=== PATIENT | male | born 1945 | race Caucasian/White ===

== ENCOUNTER 2017-05-31 14:13 | Emergency (ER) | payer MEDICARE, OTHER ==
[2017-05-31] MEDS ORDERED: MECLIZINE 25 MG TAB PO STA (14:53)
--- NOTE | 2017-05-31 15:02 | ED ---
General Adult HPI - General Chief complaint: Dizziness Stated complaint: Dizziness Time Seen by Provider: 05/31/17 14:15 Source: patient, RN notes reviewed Mode of arrival: EMS Limitations: no limitations - History of Present Illness Initial comments: This is a 71-year-old male presents emergency Department complaining of dizziness. Patient states he woke up in the middle of the night feeling dizzy patient states he went back to bed and seemed to have gotten better. 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 Patient states he did not injure himself he was already on his knees and hands when he couldn't get up. Patient states she was mildly nauseated but not vomiting. Patient states he has not had similar episodes in the past. Patient states the whole room seems like it spinning when this occurs. Patient did not notice if moving the head or shutting her eyes improved his symptoms. At this time the patient has no symptoms while sitting in bed - Related Data Home Medications Medication Instructions Recorded Confirmed Apixaban [Eliquis] 5 mg PO BID 11/01/14 05/31/17 Cholecalciferol [Vitamin D3] 2,000 unit PO DAILY 11/01/14 05/31/17 Colesevelam [Welchol] 3,750 mg PO AC-BRKFST 11/01/14 05/31/17 Gemfibrozil [Lopid] 600 mg PO AC-BID 11/01/14 05/31/17 Glimepiride [Amaryl] 4 mg PO AC-BID 11/01/14 05/31/17 Metoprolol Tartrate 25 mg PO BID 11/01/14 05/31/17 Multivitamin [Men's Multi-Vitamin] 1 tab PO DAILY 11/01/14 05/31/17 [place]-3 Acid Ethyl Esters [Lovaza] 1 gm PO QID 11/01/14 05/31/17 Quinapril HCl [Accupril] 5 mg PO DAILY 11/01/14 05/31/17 Ranolazine [Ranexa] 1,000 mg PO BID 11/01/14 05/31/17 metFORMIN HCL [Glucophage Xr] 500 mg PO DAILY 11/01/14 05/31/17 Calcium Carb/Vitamin D3/Vit K1 2 tab PO TID 05/31/17 05/31/17 [Citracal Soft Chew] Fluticasone Nasal [place] [Flonase 2 spr EA NOSTRIL DAILY 05/31/17 05/31/17 Nasal [place]] Pravastatin Sodium [Pravachol] 10 mg PO DAILY 05/31/17 05/31/17 Travoprost [Travatan Z 0.004%] 1 drop BOTH EYES HS 05/31/17 05/31/17 Previous Rx's Medication Instructions Recorded Meclizine [Antivert] 25 mg PO TID #20 tab 05/31/17 Allergies Allergy/AdvReac Type Severity Reaction Status Date / Time amoxicillin Allergy Unknown Verified 05/31/17 14:32 ampicillin Allergy Unknown Verified 05/31/17 14:32 cortisone Allergy Unknown Verified 05/31/17 14:32 erythromycin base Allergy Unknown Verified 05/31/17 14:32 Penicillins Allergy Unknown Verified 05/31/17 14:32 prednisone Allergy Unknown Verified 05/31/17 14:32 Review of Systems ROS Statement: Those systems with pertinent positive or pertinent negative responses have been documented in the HPI. ROS Other: All systems not noted in ROS Statement are negative. Past Medical History Past Medical History: Coronary Artery Disease (CAD), Chest Pain / Angina, Diabetes Mellitus, Hyperlipidemia, Hypertension, Myocardial Infarction ([place]) History of Any Multi-Drug Resistant Organisms: None Reported Past Surgical History: Coronary Bypass/CABG Past Psychological History: No Psychological Hx Reported Smoking Status: Former smoker Past Alcohol Use History: Occasional Past Drug Use History: None Reported General Exam - General Exam Comments Initial Comments: GENERAL: Patient is well-developed and well-nourished. Patient is nontoxic and well- hydrated and is in no acute distress. ENT: Neck is soft and supple. No significant lymphadenopathy is noted. Oropharynx is clear. Moist mucous membranes. Neck has full range of motion without eliciting any pain. EYES: The sclera were anicteric and conjunctiva were pink and moist. Extraocular movements were intact and pupils were equal round and reactive to light. Eyelids were unremarkable. PULMONARY: Unlabored respirations. Good breath sounds bilaterally. No audible rales rhonchi or wheezing was noted. CARDIOVASCULAR: There is a regular rate and rhythm without any murmurs gallops or rubs. ABDOMEN: Soft and nontender with normal bowel sounds. No palpable organomegaly was noted. There is no palpable pulsatile mass. SKIN: Skin is clear with no lesions or rashes and otherwise unremarkable. NEUROLOGIC: Patient is alert and oriented x3. Cranial nerves II through XII are grossly intact. Motor and sensory are also intact. Normal speech, volume and content. Symmetrical smile. Cerebellar exam grossly intact. MUSCULOSKELETAL: Normal extremities with adequate strength and full range of motion. No lower extremity swelling or edema. No calf tenderness. LYMPHATICS: No significant lymphadenopathy is noted PSYCHIATRIC: Normal psychiatric evaluation. Normal interpersonal interactions appears functionally intact in deals appropriately with others. No signs of depression. No signs of anxiety. Limitations: no limitations Course Vital Signs 05/31/17 05/31/17 14:16 15:10 Temperature 97.2 F L Pulse Rate 60 61 Respiratory 16 20 Rate Blood Pressure 150/70 131/74 O2 Sat by Pulse 98 99 Oximetry Medical Decision Making - Medical Decision Making EKG shows normal sinus rhythm at 60 bpm UT interval is 178 QRSs 164 QT interval is 456 QTC is 456 per patient's EKG shows a left bundle branch block. CT of the brain shows no acute abnormality. Chest x-ray shows no acute normalities. Patient got Antivert and then was ambulate patient had no problems ambulating. - Lab Data Result diagrams: 05/31/17 14:30 05/31/17 14:30 Lab Results 05/31/17 05/31/17 05/31/17 Range/Units 14:30 14:30 14:30 WBC 4.2 (3.8-10.6) k/uL RBC 4.33 (4.30-5.90) m/uL Hgb 13.0 (13.0-17.5) gm/dL Hct 38.9 L (39.0-53.0) % MCV 89.8 (80.0-100.0) fL MCH 30.1 (25.0-35.0) pg MCHC 33.5 (31.0-37.0) g/dL RDW 12.7 (11.5-15.5) % Plt Count 264 (150-450) k/uL Neutrophils % 52 % Lymphocytes % 36 % Monocytes % 8 % Eosinophils % 1 % Basophils % 1 % Neutrophils # 2.2 (1.3-7.7) k/uL Lymphocytes # 1.5 (1.0-4.8) k/uL Monocytes # 0.3 (0-1.0) k/uL Eosinophils # 0.1 (0-0.7) k/uL Basophils # 0.0 (0-0.2) k/uL PT (9.0-12.0) sec INR (<1.2) APTT (22.0-30.0) sec Sodium 141 (137-145) mmol/L Potassium 4.5 (3.5-5.1) mmol/L Chloride 105 (98-107) mmol/L Carbon Dioxide 22 (22-30) mmol/L Anion Gap 14 mmol/L BUN 17 (9-20) mg/dL Creatinine 0.80 (0.66-1.25) mg/dL Est GFR (MDRD) Af Amer >60 (>60 ml/min/1.73 sqM) Est GFR (MDRD) Non-Af >60 (>60 ml/min/1.73 sqM) Glucose 176 H (74-99) mg/dL Calcium 10.6 H (8.4-10.2) mg/dL Magnesium 1.9 (1.6-2.3) mg/dL Total Bilirubin 0.4 (0.2-1.3) mg/dL AST 17 (17-59) U/L ALT 24 (21-72) U/L Alkaline Phosphatase 38 (38-126) U/L Total Creatine Kinase 63 (55-170) U/L CK-MB (CK-2) 0.9 (0.0-2.4) ng/mL CK-MB (CK-2) Rel Index 1.4 Troponin I <0.012 (0.000-0.034) ng/mL Total Protein 7.2 (6.3-8.2) g/dL Albumin 4.6 (3.5-5.0) g/dL 05/31/17 Range/Units 14:30 WBC (3.8-10.6) k/uL RBC (4.30-5.90) m/uL Hgb (13.0-17.5) gm/dL Hct (39.0-53.0) % MCV (80.0-100.0) fL MCH (25.0-35.0) pg MCHC (31.0-37.0) g/dL RDW (11.5-15.5) % Plt Count (150-450) k/uL Neutrophils % % Lymphocytes % % Monocytes % % Eosinophils % % Basophils % % Neutrophils # (1.3-7.7) k/uL Lymphocytes # (1.0-4.8) k/uL Monocytes # (0-1.0) k/uL Eosinophils # (0-0.7) k/uL Basophils # (0-0.2) k/uL PT 10.1 (9.0-12.0) sec INR 1.0 (<1.2) APTT 23.7 (22.0-30.0) sec Sodium (137-145) mmol/L Potassium (3.5-5.1) mmol/L Chloride (98-107) mmol/L Carbon Dioxide (22-30) mmol/L Anion Gap mmol/L BUN (9-20) mg/dL Creatinine (0.66-1.25) mg/dL Est GFR (MDRD) Af Amer (>60 ml/min/1.73 sqM) Est GFR (MDRD) Non-Af (>60 ml/min/1.73 sqM) Glucose (74-99) mg/dL Calcium (8.4-10.2) mg/dL Magnesium (1.6-2.3) mg/dL Total Bilirubin (0.2-1.3) mg/dL AST (17-59) U/L ALT (21-72) U/L Alkaline Phosphatase (38-126) U/L Total Creatine Kinase (55-170) U/L CK-MB (CK-2) (0.0-2.4) ng/mL CK-MB (CK-2) Rel Index Troponin I (0.000-0.034) ng/mL Total Protein (6.3-8.2) g/dL Albumin (3.5-5.0) g/dL Disposition Clinical Impression: Vertigo Disposition: HOME SELF-CARE Condition: Good Instructions: Vertigo (ED) Prescriptions: Meclizine [Antivert] 25 mg PO TID #20 tab Referrals: Nolan Dawn MD [Primary Care Provider] - 1-2 days Time of Disposition: 16:40
[2017-05-31 15:08] LABS: Basophils % (A) 1 %; Eosinophils # (A) 0.1 k/uL (0-0.7); Eosinophils % (A) 1 %; HCT 38.9 % (39.0-53.0); Lymphocytes # (A) 1.5 k/uL (1.0-4.8); Lymphocytes % (A) 36 %; MCH 30.1 pg (25.0-35.0); MCHC 33.5 g/dL (31.0-37.0); MCV 89.8 fL (80.0-100.0); Mean Platelet Volume 6.2; Monocytes # (A) 0.3 k/uL (0-1.0); Monocytes % (A) 8 %; Neutrophils # (A) 2.2 k/uL (1.3-7.7); Neutrophils % (A) 52 %; Platelet Count 264 k/uL (150-450); RBC 4.33 m/uL (4.30-5.90); RDW 12.7 % (11.5-15.5); WBC 4.2 k/uL (3.8-10.6)
[2017-05-31 15:11] VITALS: PULSE 61
[2017-05-31 15:14] LABS: Partial Thromboplastin Time 23.7 sec (22.0-30.0); Prothrombin Time 10.1 sec (9.0-12.0)
--- NOTE | 2017-05-31 15:16 | XR ---
EXAMINATION TYPE: XR chest 2V DATE OF EXAM: 05/31/2017 COMPARISON: 2015 chest radiograph HISTORY: Dizziness and weakness TECHNIQUE: Frontal and lateral views of the chest are obtained. FINDINGS: There is no focal air space opacity, pleural effusion, or pneumothorax seen. The cardiac silhouette size is within normal limits. The osseous structures are intact. Intact midline sternoto my wires and post CABG changes the chest are noted. Remote healed left upper lateral rib fractures ar e seen. Calcified granuloma is noted within the right lung base. Cholecystectomy clips are present. M ild multilevel degenerative changes of the thoracic spine are seen. IMPRESSION: No acute cardiopulmonary process.
[2017-05-31 15:25] LABS: ALT 24 U/L (21-72); AST 17 U/L (17-59); Albumin 4.6 g/dL (3.5-5.0); Alkaline Phosphatase 38 U/L (38-126); Anion Gap 14 mmol/L; Blood Urea Nitrogen 17 mg/dL (9-20); Calcium 10.6 mg/dL (8.4-10.2); Carbon Dioxide 22 mmol/L (22-30); Chloride 105 mmol/L (98-107); Glucose 176 mg/dL (74-99); Magnesium 1.9 mg/dL (1.6-2.3); Potassium 4.5 mmol/L (3.5-5.1); Sodium 141 mmol/L (137-145); Total Bilirubin 0.4 mg/dL (0.2-1.3); Total Protein 7.2 g/dL (6.3-8.2)
[2017-05-31 15:30] LABS: Creatine Kinase 63 U/L (55-170)
--- NOTE | 2017-05-31 15:32 | CT ---
EXAMINATION TYPE: CT brain wo con DATE OF EXAM: 05/31/2017 COMPARISON: NONE HISTORY: 71-year-old male Dizziness, fall and unable to get up afterwards. TECHNIQUE: Examination was done in axial plane without intravenous contrast. Coronal and sagittal r econstructions performed. CT DLP: 1171 mGycm Automated exposure control for dose reduction was used. FINDINGS: There is no evidence of acute intracranial hemorrhage, acute ischemic changes, mass, mass-effect, or extra-axial fluid collection. There is no effacement of cerebral sulci or basal subarachnoid cister ns. There is no hydrocephalus. There is no midline shift. Hurst-white matter distinction is preserv ed. Moderate to large right posterior scalp hematoma. No underlying calvarial fracture. Paranasal sinuses and mastoid air cells are well pneumatized. Orbits and globes are intact. IMPRESSION: Moderate to large right posterior scalp hematoma. No underlying skull fracture or acute intracranial abnormality seen.
[2017-05-31 15:43] LABS: Creatine Kinase MB 0.9 ng/mL (0.0-2.4); Troponin I <0.012 ng/mL (0.000-0.034)
[2017-05-31 16:42] VITALS: BP 127/76; RESP 18; TEMP 98.3
== END 2017-05-31 16:55 | disposition home or self-care (01) ==
LOC: EC 14:13
DX: R42 Dizziness and giddiness (principal); R11.0 Nausea; I44.7 Left bundle-branch block, unspecified; E11.9 Type 2 diabetes mellitus without complications; E78.5 Hyperlipidemia, unspecified; I10 Essential (primary) hypertension; I25.2 Old myocardial infarction; I25.10 Atherosclerotic heart disease of native coronary artery without angina pectoris; Z87.891 Personal history of nicotine dependence; Z88.0 Allergy status to penicillin; Z88.1 Allergy status to other antibiotic agents; Z88.8 Allergy status to other drugs, medicaments and biological substances; Z79.01 Long term (current) use of anticoagulants; Z79.84 Long term (current) use of oral hypoglycemic drugs; Z79.51 Long term (current) use of inhaled steroids; Z79.899 Other long term (current) drug therapy
CPT/HCPCS: 36415; 70450; 71046; 80053; 82550; 82553; 83735; 84484; 85025; 85610; 85730; 93005; 99285

== ENCOUNTER 2021-09-08 03:50 | Emergency (ER) | payer MEDICARE ==
--- NOTE | 2021-09-08 04:06 | ED ---
Chest Pain HPI <Agustín Warner - Last Filed: 09/08/21 08:27> - General Source: EMS, RN notes reviewed, old records reviewed Mode of arrival: EMS Limitations: no limitations - History of Present Illness MD Complaint: chest pain -: hour(s) Onset: during rest Pain Location: left chest Pain Radiation: back Severity: moderate Severity scale (1-10): 4 Quality: tightness, heaviness Consistency: intermittent, now resolved Improves With: nothing, eating Context: recent illness (Exposure to positive coronavirus ) Anginal Symptoms: diaphoresis, dyspnea Other Symptoms: palpitations Treatments Prior to Arrival: none <Gurjit Tinajero - Last Filed: 09/08/21 21:44> - General Chief Complaint: Chest Pain Stated Complaint: Chest Pain Time Seen by Provider: 09/08/21 04:06 - History of Present Illness Initial Comments: 76-year-old male with history of CAD coming in for chest pain chest pain that began earlier today with some pressure on his chest but that is all abated. Patient has no shortness of breath. Patient does take knowledge that he was recently exposed to covert his is positive tested positive yesterday. Patient does admit some nausea some bodyaches but he denies any fever he did have chills and sweats earlier tonight. No travel history no known significant chest pain currently. No current shortness of breath. (Gurjit Tinajero) - Related Data Home Medications Medication Instructions Recorded Confirmed Apixaban [Eliquis] 5 mg PO BID 11/01/14 05/31/17 Cholecalciferol [Vitamin D3] 2,000 unit PO DAILY 11/01/14 05/31/17 Colesevelam [Welchol] 3,750 mg PO AC-BRKFST 11/01/14 05/31/17 Glimepiride [Amaryl] 4 mg PO AC-BID 11/01/14 05/31/17 Metoprolol Tartrate 25 mg PO BID 11/01/14 05/31/17 Multivitamin [Men's Multi-Vitamin] 1 tab PO DAILY 11/01/14 05/31/17 [place]-3 Acid Ethyl Esters [Lovaza] 1 gm PO QID 11/01/14 05/31/17 Quinapril HCl [Accupril] 5 mg PO DAILY 11/01/14 05/31/17 Ranolazine [Ranexa] 1,000 mg PO BID 11/01/14 05/31/17 gemfibroziL [Lopid] 600 mg PO AC-BID 11/01/14 05/31/17 metFORMIN HCL [Glucophage Xr] 500 mg PO DAILY 11/01/14 05/31/17 Calcium Carb/Vitamin D3/Vit K1 2 tab PO TID 05/31/17 05/31/17 [Citracal Soft Chew] Fluticasone Nasal [place] [Flonase 2 spr EA NOSTRIL DAILY 05/31/17 05/31/17 Nasal [place]] Pravastatin Sodium [Pravachol] 10 mg PO DAILY 05/31/17 05/31/17 Travoprost [Travatan Z 0.004%] 1 drop BOTH EYES HS 05/31/17 05/31/17 Previous Rx's Medication Instructions Recorded Meclizine [Antivert] 25 mg PO TID #20 tab 05/31/17 Allergies Allergy/AdvReac Type Severity Reaction Status Date / Time amoxicillin Allergy Unknown Verified 09/08/21 03:53 ampicillin Allergy Unknown Verified 09/08/21 03:53 cortisone Allergy Unknown Verified 09/08/21 03:53 erythromycin base Allergy Unknown Verified 09/08/21 03:53 Penicillins Allergy Unknown Verified 09/08/21 03:53 prednisone Allergy Unknown Verified 09/08/21 03:53 Review of Systems ROS Other: All systems not noted in ROS Statement are negative. <Agustín Warner - Last Filed: 09/08/21 08:27> ROS Other: All systems not noted in ROS Statement are negative. <Gurjit Tinajero - Last Filed: 09/08/21 21:44> ROS Statement: Those systems with pertinent positive or pertinent negative responses have been documented in the HPI. EKG Findings - EKG Comments: EKG Findings:: EKG is sinus rhythm 77 ER 154 QRS 164 QTc 450 <Gurjit Tinajero - Last Filed: 09/08/21 21:44> Past Medical History Past Medical History: Coronary Artery Disease (CAD), Chest Pain / Angina, Diabetes Mellitus, Hyperlipidemia, Hypertension, Myocardial Infarction ([place]) History of Any Multi-Drug Resistant Organisms: None Reported Past Surgical History: Coronary Bypass/CABG Past Psychological History: No Psychological Hx Reported Smoking Status: Never smoker Past Alcohol Use History: Occasional Past Drug Use History: None Reported <Gurjit Tinajero - Last Filed: 09/08/21 21:44> General Exam Limitations: no limitations General appearance: alert, in no apparent distress Head exam: Present: atraumatic, normocephalic, normal inspection Eye exam: Present: normal appearance, PERRL, EOMI. Absent: scleral icterus, conjunctival injection, periorbital swelling ENT exam: Present: normal exam, mucous membranes moist Neck exam: Present: normal inspection. Absent: tenderness, meningismus, lymphadenopathy Respiratory exam: Present: normal lung sounds bilaterally. Absent: respiratory distress, wheezes, rales, rhonchi, stridor Cardiovascular Exam: Present: regular rate, normal rhythm, normal heart sounds. Absent: systolic murmur, diastolic murmur, rubs, gallop, clicks GI/Abdominal exam: Present: soft, normal bowel sounds. Absent: distended, tenderness, guarding, rebound, rigid Extremities exam: Present: normal inspection, full ROM, normal capillary refill. Absent: tenderness, pedal edema, joint swelling, calf tenderness Back exam: Present: normal inspection Neurological exam: Present: alert, oriented X3, CN II-XII intact Psychiatric exam: Present: normal affect, normal mood Skin exam: Present: warm, dry, intact, normal color. Absent: rash <Gurjit Tinajero - Last Filed: 09/08/21 21:44> Course <Gurjit Tinajero - Last Filed: 09/08/21 21:44> Vital Signs 09/08/21 09/08/21 09/08/21 03:53 03:57 05:02 Temperature 98.7 F Pulse Rate 80 70 Respiratory 16 16 18 Rate Blood Pressure 148/84 142/87 O2 Sat by Pulse 96 98 Oximetry 09/08/21 09/08/21 06:02 08:32 Temperature 99.6 F Pulse Rate 72 74 Respiratory 18 18 Rate Blood Pressure 140/67 142/80 O2 Sat by Pulse 97 96 Oximetry - Reevaluation(s) Reevaluation #1: 09/08/21 Medical record is reviewed (Gurjit Tinajero) Reevaluation #2: 09/08/21 Patient is positive for coronavirus will get antibody treatment here in the emergency department (Gurjit Tinajero) Reevaluation #3: 09/08/21 Patient has a mild troponin leak, will check his second troponin after antibiotics, patient is chest pain-free (Gurjit Tinajero) Reevaluation #4: Studies Chest x-rays negative for acute disease (Gurjit Tinajero) Chest Pain MDM <Agustín Warner - Last Filed: 09/08/21 08:27> - MDM Patient is a 76-year-old male signed out to me pending results of second troponin. Patient presents with chest tightness, and his Covid positive. He received monoclonal antibodies was here in the department. We'll send out to me pending results of second troponin, as initially was indeterminate. Remainder the labs are relatively unremarkable. Initial troponin was 0.016. Second troponin is 0.014. EKG was evaluated by the prior physician, and upon my evaluation appears unchanged from prior EKGs. There are chronic changes. There is an old left bundle branch block. On reevaluation, patient's vital signs remained within normal limits and stable. Chest pain is not present. I discussed the findings with the patient. I believe it is safer to be discharged home at this time. Heart score is 3-4, with 2 indeterminate troponins, the second actually improving. Patient is asymptomatic at this time. I did discuss quarantine with him. He will obtain a pulse oximeter for home. He'll be discharged home at this time. Strict return precautions were discussed. Patient tolerated the monoclonal antibody therapy well. I instructed the patient to follow up with their PCP in the next 3 days. I explained that the patient should return to the emergency department if they experience any worsening symptoms. Strict return precautions were discussed with the patient. The patient expressed understanding of these instructions. I answered all questions that the patient had. The patient was discharged home in good condition with their prescriptions and follow up information. (Agustín Warner) Disposition Is patient prescribed a controlled substance at d/c from ED?: No Time of Disposition: 08:15 <Agustín Warner - Last Filed: 09/08/21 08:27> Is patient prescribed a controlled substance at d/c from ED?: No <Gurjit Tinajero - Last Filed: 09/08/21 21:44> Clinical Impression: Atypical chest pain, COVID-19, Coronavirus infection Disposition: HOME SELF-CARE Condition: Good Instructions (If sedation given, give patient instructions): Coronavirus Disease 2019 (COVID-19), COVID-19 and Chronic Health Conditions (ED) Referrals: Nolan Dawn MD [Primary Care Provider] - 1-2 days
[2021-09-08 04:24] LABS: Basophils % (A) 1 %; Eosinophils # (A) 0.1 k/uL (0-0.7); Eosinophils % (A) 1 %; HCT 41.7 % (39.0-53.0); Lymphocytes # (A) 0.7 k/uL (1.0-4.8); Lymphocytes % (A) 8 %; MCH 29.1 pg (25.0-35.0); MCHC 31.2 g/dL (31.0-37.0); MCV 93.3 fL (80.0-100.0); Mean Platelet Volume 6.4; Monocytes # (A) 0.6 k/uL (0-1.0); Monocytes % (A) 7 %; Neutrophils # (A) 7.1 k/uL (1.3-7.7); Neutrophils % (A) 83 %; Platelet Count 260 k/uL (150-450); RBC 4.46 m/uL (4.30-5.90); RDW 12.9 % (11.5-15.5); WBC 8.5 k/uL (3.8-10.6)
[2021-09-08 04:32] LABS: INR 0.9 (<1.2); Partial Thromboplastin Time 26.8 sec (22.0-30.0); Prothrombin Time 10.4 sec (9.0-12.0)
[2021-09-08 04:34] LABS: ALT 14 U/L (4-49); AST 20 U/L (17-59); African American GFR (CKD) >90 (>60 ml/min/1.73 sqM); Albumin 4.5 g/dL (3.5-5.0); Alkaline Phosphatase 43 U/L (38-126); Anion Gap 10 mmol/L; Blood Urea Nitrogen 24 mg/dL (9-20); Calcium 9.8 mg/dL (8.4-10.2); Carbon Dioxide 19 mmol/L (22-30); Chloride 107 mmol/L (98-107); Glucose 147 mg/dL (74-99); Lipase 168 U/L (23-300); Non-African American GFR(CKD) 80 (>60 ml/min/1.73 sqM); Potassium 4.1 mmol/L (3.5-5.1); Sodium 136 mmol/L (137-145); Total Bilirubin 0.8 mg/dL (0.2-1.3); Total Protein 7.1 g/dL (6.3-8.2)
--- NOTE | 2021-09-08 05:00 | XR ---
EXAMINATION TYPE: XR chest 1V portable DATE OF EXAM: 09/08/2021 COMPARISON: 05/31/2017 HISTORY: Chest pain TECHNIQUE: FINDINGS: Heart is normal. Lungs are clear of infiltrate. There are sternal wires. There are no hilar masses. Costophrenic angles are clear. Bony thorax is intact. There are old left-sided healed rib fr actures. IMPRESSION: No active cardiopulmonary disease. Normal heart. No change.
[2021-09-08] MEDS ORDERED: SODIUM CHLORIDE 0.9% 1,000 ML IV STA (05:10)
[2021-09-08] MEDS ORDERED: BEBTELOVIMAB (EUA) 175 MG/2 ML VIAL IV ONE (05:30)
[2021-09-08 06:03] VITALS: RESP 18; TEMP 99.6
[2021-09-08 08:33] VITALS: BP 142/80; PULSE 74
== END 2021-09-08 08:33 | disposition home or self-care (01) ==
LOC: EC 03:50
DX: U07.1 COVID-19 (principal); I10 Essential (primary) hypertension; E11.9 Type 2 diabetes mellitus without complications; I25.2 Old myocardial infarction; Z88.0 Allergy status to penicillin; Z88.8 Allergy status to other drugs, medicaments and biological substances; Z88.1 Allergy status to other antibiotic agents
CPT/HCPCS: 36415; 93005; 83880; 80053; 83690; 83735; 84484; 85025; 85610; 85730; 87635; 71045; 99285; 96360; 96361; Q0222

== ENCOUNTER 2023-07-15 19:33 | Emergency (ER) | payer MEDICARE ==
[2023-07-15] MEDS: IBUPROFEN 600 MG TAB PO STA (20:34)
[2023-07-15] MEDS: SODIUM CHLORIDE 0.9% 1,000 ML IV STA (20:36)
[2023-07-15 21:18] LABS: Basophils % (A) 0 %; Eosinophils % (A) 0 %; HGB 12.3 gm/dL (13.0-17.5); Lymphocytes # (A) 0.6 k/uL (1.0-4.8); Lymphocytes % (A) 8 %; MCH 28.4 pg (25.0-35.0); MCHC 32.4 g/dL (31.0-37.0); MCV 87.8 fL (80.0-100.0); Mean Platelet Volume 6.9; Monocytes # (A) 0.6 k/uL (0-1.0); Monocytes % (A) 7 %; Neutrophils # (A) 6.6 k/uL (1.3-7.7); Neutrophils % (A) 83 %; Platelet Count 281 k/uL (150-450); RBC 4.33 m/uL (4.30-5.90); RDW 13.9 % (11.5-15.5)
[2023-07-15 21:29] LABS: INR 0.9 (<1.2); Partial Thromboplastin Time 26.6 sec (22.0-30.0); Prothrombin Time 10.2 sec (10.0-12.5)
--- NOTE | 2023-07-15 21:30 | XR ---
EXAMINATION TYPE: XR chest 2V DATE OF EXAM: 07/15/2023 9:01 PM CLINICAL INDICATION:Male, 77 years old with history of Weakness; [facility] COMPARISON: 11/20/2022 TECHNIQUE: XR chest 2V. Frontal and lateral views of the chest.. FINDINGS: Lines/Tubes/Devices: No indwelling lines are seen. Monitor leads. Heart/mediastinum: Heart size is normal. Mildly tortuous aorta. Mediastinum otherwise unremarkable. Multiple sternotomy wires. Pulmonary vascularity: Not increased, Lungs/Pleura: There is no evidence of pleural effusion, focal consolidation, or pneumothorax. Mild s tranding in the left lung base likely scarring or atelectasis. Musculoskeletal: No acute osseous abnormality demonstrated in the limits of the exam. Degenerative c hanges of the spine and shoulders. Old left rib fracture deformities. Other findings: None. IMPRESSION: No acute cardiopulmonary abnormality.
[2023-07-15 21:56] LABS: ALT 16 U/L (4-49); AST 30 U/L (17-59); African American GFR (CKD) >90 (>60 ml/min/1.73 sqM); Albumin 4.3 g/dL (3.5-5.0); Alkaline Phosphatase 61 U/L (38-126); Anion Gap 12 mmol/L; Blood Urea Nitrogen 20 mg/dL (9-20); Calcium 9.9 mg/dL (8.4-10.2); Carbon Dioxide 19 mmol/L (22-30); Chloride 106 mmol/L (98-107); Glucose 137 mg/dL (74-99); Magnesium 2.2 mg/dL (1.6-2.3); Non-African American GFR(CKD) 86 (>60 ml/min/1.73 sqM); Phosphorus 3.9 mg/dL (2.5-4.5); Potassium 4.5 mmol/L (3.5-5.1); Sodium 137 mmol/L (137-145); Total Bilirubin 0.5 mg/dL (0.2-1.3)
--- NOTE | 2023-07-15 22:14 | ED ---
URI HPI - General Chief Complaint: Upper Respiratory Infection Stated Complaint: weakness Time Seen by Provider: 07/15/23 19:48 Source: patient Mode of arrival: ambulatory Limitations: no limitations - History of Present Illness Initial Comments: 77-year-old male presenting with chief complaint of weakness. Patient started having bodyaches and fatigue last night. Today he started experiencing productive cough and fever. He took an at home COVID test which was positive. Patient states that there was an incident where he was walking and felt very f atigued and weak causing him to fall onto the couch. His friend then advised him to report to the ER. He denies any head injury or loss of consciousness. Patient takes Eliquis and Plavix. He states that during the episode he had cramping in his muscles. At this time he denies any chest pain, difficulty breathing, abdominal pain, nausea, vomiting, diarrhea. - Related Data Home Medications Medication Instructions Recorded Confirmed Apixaban [Eliquis] 5 mg PO BID 11/01/14 11/20/22 Colesevelam [Welchol] 1,875 mg PO BID 11/01/14 11/20/22 Glimepiride [Amaryl] 4 mg PO DAILY 11/01/14 11/20/22 Metoprolol Tartrate 25 mg PO HS 11/01/14 11/20/22 Multivitamin [Men's Multi-Vitamin] 1 tab PO DAILY 11/01/14 11/20/22 [place]-3 Acid Ethyl Esters [Lovaza] 2 gm PO BID 11/01/14 11/20/22 Ranolazine [Ranexa] 1,000 mg PO BID 11/01/14 11/20/22 gemfibroziL [Lopid] 1,200 mg PO HS 11/01/14 11/20/22 Fluticasone Nasal [place] [Flonase 1 spr EA NOSTRIL BID 05/31/17 11/20/22 Nasal [place]] Cholecalciferol [Vitamin D3 (125 250 mcg PO DAILY 11/20/22 11/20/22 Mcg = 5000 Iu)] Clopidogrel [Plavix] 75 mg PO HS 11/20/22 11/20/22 Empagliflozin [Jardiance] 25 mg PO DAILY 11/20/22 11/20/22 Latanoprost [Latanoprost 0.005%] 1 drop BOTH EYES HS 11/20/22 11/20/22 Nitroglycerin Sl Tabs [Nitrostat] 0.4 mg SUBLINGUAL Q5M PRN 11/20/22 11/20/22 Pravastatin Sodium [Pravachol] 20 mg PO HS 11/20/22 11/20/22 bisacodyL [Dulcolax] 5 mg PO HS 11/20/22 11/20/22 lisinopriL [Zestril] 2.5 mg PO MOWEFR 11/20/22 11/20/22 metFORMIN HCL [Glucophage] 850 mg PO BID 11/20/22 11/20/22 Previous Rx's Medication Instructions Recorded Molnupiravir [Lagevrio (Eua)] 800 mg PO Q12HR 5 Days #40 cap 07/15/23 Molnupiravir [Lagevrio (Eua)] 800 mg PO BID 5 Days #40 cap 07/16/23 Allergies Allergy/AdvReac Type Severity Reaction Status Date / Time amoxicillin Allergy Unknown Verified 07/15/23 19:46 ampicillin Allergy Unknown Verified 07/15/23 19:46 cortisone Allergy Unknown Verified 07/15/23 19:46 erythromycin base Allergy Unknown Verified 07/15/23 19:46 Penicillins Allergy Unknown Verified 07/15/23 19:46 prednisone Allergy Unknown Verified 07/15/23 19:46 Review of Systems ROS Statement: Those systems with pertinent positive or pertinent negative responses have been documented in the HPI. ROS Other: All systems not noted in ROS Statement are negative. Past Medical History Past Medical History: Coronary Artery Disease (CAD), Chest Pain / Angina, Diabetes Mellitus, Hyperlipidemia, Hypertension, Myocardial Infarction (NH) History of Any Multi-Drug Resistant Organisms: None Reported Past Surgical History: Coronary Bypass/CABG Past Psychological History: No Psychological Hx Reported Smoking Status: Never smoker Past Alcohol Use History: Occasional Past Drug Use History: None Reported General Exam Limitations: no limitations General appearance: alert, in no apparent distress Head exam: Present: atraumatic, normocephalic Eye exam: Present: normal appearance Neck exam: Present: normal inspection. Absent: meningismus Respiratory exam: Present: normal lung sounds bilaterally. Absent: respiratory distress, wheezes, rales, rhonchi, stridor Cardiovascular Exam: Present: regular rate, normal rhythm, normal heart sounds. Absent: systolic murmur, diastolic murmur, rubs, gallop, clicks Neurological exam: Present: alert, oriented X3 Expanded Eye Response: (4) open spontaneously Motor Response: (6) obeys commands Verbal Response: (5) oriented [place] Total: 15 Psychiatric exam: Present: normal affect, normal mood Skin exam: Present: warm, dry Course Vital Signs 07/15/23 07/15/23 07/15/23 19:43 19:54 20:37 Temperature 102.6 F H Pulse Rate 90 75 Respiratory 20 19 20 Rate Blood Pressure 174/75 131/63 O2 Sat by Pulse 97 96 Oximetry 07/15/23 07/15/23 07/16/23 21:46 22:22 00:00 Temperature 99.8 F H Pulse Rate 71 68 Respiratory 18 19 Rate Blood Pressure 115/59 119/56 O2 Sat by Pulse 98 98 Oximetry Medical Decision Making - Medical Decision Making Was pt. sent in by a medical professional or institution (, PA, HORSE TREKKING GUIDE, urgent care, hospital, or shelter...) When possible be specific @ -No Did you speak to anyone other than the patient for history (EMS, parent, family, police, friend...)? What history was obtained from this source @ -No Did you review nursing and triage notes (agree or disagree)? Why? @ -I reviewed and agree with nursing and triage notes Were old charts reviewed (outside hosp., previous admission, EMS record, old EKG, old radiological studies, urgent care reports/EKG's, shelter records)? Report findings @ -No old charts were reviewed Differential Diagnosis (chest pain, altered mental status, abdominal pain women, abdominal pain men, vaginal bleeding, weakness, fever, dyspnea, syncope, headache, dizziness, GI bleed, back pain, seizure, CVA, palpatations, mental health, musculoskeletal)? @ -MDM Differential Weakness: Hypoglycemia, shock, sepsis, hyponatremia, anemia, infection, NH, ETOH, adverse medicine reaction, overdose, stroke. ... This is not meant to be an all- inclusive list EKG interpreted by me (3pts min.). @ -EKG shows sinus rhythm ventricular rate 79. TN interval 163. QRS 157. QT 390. QTc 425. Left axis deviation. X-rays interpreted by me (1pt min.). @ -Chest x-ray shows no acute process CT interpreted by me (1pt min.). @ -CT shows no acute intracranial hemorrhage, midline shift, or mass effect. Mild atrophy and chronic microvascular ischemic changes in the white matter. Mucosal thickening throughout the bilateral ethmoid air cells. No significant fluid is seen. Nonspecific right scalp 5 mm nodular density anteriorly, seems slightly larger from previous in 2018 but given the timeframe is considered probably benign. Please correlate and follow-up clinically. Soft tissue changes in the posterior right scalp occipital region, similar to previous. Given the history of previous surgery in this area this probably represents postoperative changes. No evidence of acute cervical spine fracture or traumatic malalignment. Mild/moderate cervical spondylosis U/S interpreted by me (1pt. min.). @ -None done What testing was considered but not performed or refused? (CT, X-rays, U/S, labs)? Why? @ -None What meds were considered but not given or refused? Why? @ -None Did you discuss the management of the patient with other professionals (professionals i.e. , PA, HORSE TREKKING GUIDE, lab, RT, psych nurse, family welfare social work professor, processing manager, teacher, boating safety officer, caseworker protective services)? Give summary @ -No Was smoking cessation discussed for >3mins.? @ -No Was critical care preformed (if so, how long)? @ -No Were there social determinants of health that impacted care today? How? (Homelessness, low income, unemployed, alcoholism, drug addiction, transportation, low edu. Level, literacy, decrease access to med. care, custodial, rehab)? @ -No Was there de-escalation of care discussed even if they declined (Discuss DNR or withdrawal of care, Hospice)? DNR status @ -No What co-morbidities impacted this encounter? (DM, HTN, Smoking, COPD, CAD, Cancer, CVA, ARF, Chemo, Hep., AIDS, mental health diagnosis, sleep apnea, morbid obesity)? @ -None Was patient admitted / discharged? Hospital course, mention meds given and route, prescriptions, significant lab abnormalities, going to OR and other pertinent info. @ -77-year-old male presenting chief complaint of weakness. Patient tested positive for COVID at home today. He admits to cough, congestion, body aches. He had an episode at home today where he felt so weak that he onto the couch. Upon arrival he is febrile, he is given ibuprofen. He took three 500 mg tablets of acetaminophen prior to arrival, I counseled the patient on taking only 1 g of acetaminophen at a time. He denies any head injury, loss of consciousness, use of blood thinners. Heart and lungs are clear to auscultation. Patient is given IV fluids. Lab work requires no action. Negative chest x-ray and CT of the brain and cervical spine. On reassessment patient reports that he feels much better and is eager for discharge home. he is started on molnupiravir given his multiple comorbidities. Follow-up with PCP. Report back to ER with any new or worsening symptoms. Discussed return parameters and answered all questions. Patient conveyed verbal understanding and agreed to the plan. I discussed this case in detail with my attending Dr. Warner Undiagnosed new problem with uncertain prognosis? @ -No Drug Therapy requiring intensive monitoring for toxicity (Heparin, Nitro, Insulin, Cardizem)? @ -No Were any procedures done? @ -No Diagnosis/symptom? @ -COVID, weakness Acute, or Chronic, or Acute on Chronic? @ -Acute Uncomplicated (without systemic symptoms) or Complicated (systemic symptoms)? @ -Uncomplicated Side effects of treatment? @ -No Exacerbation, Progression, or Severe Exacerbation? @ -No Poses a threat to life or bodily function? How? (Chest pain, [place], NH, pneumonia, PE, COPD, DKA, ARF, appy, cholecystitis, CVA, Diverticulitis, Homicidal, S uicidal, threat to staff... and all critical care pts) @ -Low likelihood - Lab Data Result diagrams: 07/15/23 20:45 07/15/23 20:45 Lab Results 07/15/23 07/15/23 07/15/23 Range/Units 20:45 20:45 20:45 WBC 8.0 (3.8-10.6) k/uL RBC 4.33 (4.30-5.90) m/uL Hgb 12.3 L (13.0-17.5) gm/dL Hct 38.0 L (39.0-53.0) % MCV 87.8 (80.0-100.0) fL MCH 28.4 (25.0-35.0) pg MCHC 32.4 (31.0-37.0) g/dL RDW 13.9 (11.5-15.5) % Plt Count 281 (150-450) k/uL MPV 6.9 Neutrophils % 83 % Lymphocytes % 8 % Monocytes % 7 % Eosinophils % 0 % Basophils % 0 % Neutrophils # 6.6 (1.3-7.7) k/uL Lymphocytes # 0.6 L (1.0-4.8) k/uL Monocytes # 0.6 (0-1.0) k/uL Eosinophils # 0.0 (0-0.7) k/uL Basophils # 0.0 (0-0.2) k/uL PT 10.2 (10.0-12.5) sec INR 0.9 (<1.2) APTT 26.6 (22.0-30.0) sec Sodium 137 (137-145) mmol/L Potassium 4.5 (3.5-5.1) mmol/L Chloride 106 (98-107) mmol/L Carbon Dioxide 19 L (22-30) mmol/L Anion Gap 12 mmol/L BUN 20 (9-20) mg/dL Creatinine 0.81 (0.66-1.25) mg/dL Est GFR (CKD-EPI)AfAm >90 (>60 ml/min/1.73 sqM) Est GFR (CKD-EPI)NonAf 86 (>60 ml/min/1.73 sqM) Glucose 137 H (74-99) mg/dL Plasma Lactic Acid [place] (0.7-2.0) mmol/L Calcium 9.9 (8.4-10.2) mg/dL Phosphorus 3.9 (2.5-4.5) mg/dL Magnesium 2.2 (1.6-2.3) mg/dL Total Bilirubin 0.5 (0.2-1.3) mg/dL AST 30 (17-59) U/L ALT 16 (4-49) U/L Alkaline Phosphatase 61 (38-126) U/L Troponin I (0.000-0.034) ng/mL Total Protein 7.0 (6.3-8.2) g/dL Albumin 4.3 (3.5-5.0) g/dL Urine Color Urine Appearance (Clear) Urine pH (5.0-8.0) Ur Specific [place] (1.001-1.035) Urine Protein (Negative) Urine Glucose (UA) (Negative) Urine Ketones (Negative) Urine Blood (Negative) Urine Nitrite (Negative) Urine Bilirubin (Negative) Urine Urobilinogen (<2.0) mg/dL Ur Leukocyte Esterase (Negative) 07/15/23 07/15/23 07/15/23 Range/Units 20:45 20:45 22:34 WBC (3.8-10.6) k/uL RBC (4.30-5.90) m/uL Hgb (13.0-17.5) gm/dL Hct (39.0-53.0) % MCV (80.0-100.0) fL MCH (25.0-35.0) pg MCHC (31.0-37.0) g/dL RDW (11.5-15.5) % Plt Count (150-450) k/uL MPV Neutrophils % % Lymphocytes % % Monocytes % % Eosinophils % % Basophils % % Neutrophils # (1.3-7.7) k/uL Lymphocytes # (1.0-4.8) k/uL Monocytes # (0-1.0) k/uL Eosinophils # (0-0.7) k/uL Basophils # (0-0.2) k/uL PT (10.0-12.5) sec INR (<1.2) APTT (22.0-30.0) sec Sodium (137-145) mmol/L Potassium (3.5-5.1) mmol/L Chloride (98-107) mmol/L Carbon Dioxide (22-30) mmol/L Anion Gap mmol/L BUN (9-20) mg/dL Creatinine (0.66-1.25) mg/dL Est GFR (CKD-EPI)AfAm (>60 ml/min/1.73 sqM) Est GFR (CKD-EPI)NonAf (>60 ml/min/1.73 sqM) Glucose (74-99) mg/dL Plasma Lactic Acid [place] 1.2 (0.7-2.0) mmol/L Calcium (8.4-10.2) mg/dL Phosphorus (2.5-4.5) mg/dL Magnesium (1.6-2.3) mg/dL Total Bilirubin (0.2-1.3) mg/dL AST (17-59) U/L ALT (4-49) U/L Alkaline Phosphatase (38-126) U/L Troponin I <0.012 (0.000-0.034) ng/mL Total Protein (6.3-8.2) g/dL Albumin (3.5-5.0) g/dL Urine Color Light Yellow Urine Appearance Clear (Clear) Urine pH 5.0 (5.0-8.0) Ur Specific [place] 1.032 (1.001-1.035) Urine Protein Trace H (Negative) Urine Glucose (UA) 4+ H (Negative) Urine Ketones Trace H (Negative) Urine Blood Negative (Negative) Urine Nitrite Negative (Negative) Urine Bilirubin Negative (Negative) Urine Urobilinogen <2.0 (<2.0) mg/dL Ur Leukocyte Esterase Negative (Negative) Disposition Clinical Impression: COVID Disposition: HOME SELF-CARE Condition: Good Instructions (If sedation given, give patient instructions): COVID-19 (Coronavirus Disease 2019) (ED) Additional Instructions: Follow-up with PCP. Report back to ER with any new or worsening symptoms. Take Motrin and Tylenol for fever and pain control. Take medication as prescribed. Quarantine for 5 days starting from the first day of symptoms. Afterwards you may end quarantine but wear a mask in public at all times for an additional 5 days Prescriptions: Molnupiravir [Lagevrio (Eua)] 800 mg PO Q12HR 5 Days #40 cap Molnupiravir [Lagevrio (Eua)] 800 mg PO BID 5 Days #40 cap Is patient prescribed a controlled substance at d/c from ED?: No Referrals: Nolan Dawn MD [Primary Care Provider] - 1-2 days Time of Disposition: 23:54
[2023-07-15 22:46] VITALS: TEMP 99.8
[2023-07-15 22:54] LABS: Appearance,Urine Clear (Clear); Bilirubin,Urine Negative (Negative); Blood,Urine Negative (Negative); Color,Urine Light Yellow; Glucose,Urine (UA) 4+ (Negative); Ketones,Urine Trace (Negative); Leukocyte Esterase,Urine Negative (Negative); Nitrite,Urine Negative (Negative); Protein,Urine Trace (Negative); Specific Gravity,Urine 1.032 (1.001-1.035); Urobilinogen,Urine <2.0 mg/dL (<2.0)
--- NOTE | 2023-07-15 23:45 | CT ---
EXAMINATION TYPE: CT brain cspine wo con CT DLP: 1524.8 mGycm, Automated exposure control for dose reduction was used. DATE OF EXAM: 07/15/2023 9:43 PM COMPARISON: CT head 05/31/2017 CLINICAL INDICATION:Male, 77 years old with history of fall; Fall on thinners. TECHNIQUE: Brain: Multiple axial CT images of the brain were obtained without IV contrast. Cspine: Axial CT images from the skull base to the inferior aspect of T2 we obtained without intraven ous contrast. Coronal and sagittal reformatted images were also reviewed. FINDINGS: Brain: Extra-axial spaces: No abnormal extra-axial fluid collections. Ventricular system: Appear dilated in proportion to the degree of cerebral atrophy. Cerebral parenchyma: No increased attenuation to suggest acute intraparenchymal hemorrhage. The gra y-white matter interface appears maintained. Mild generalized brain atrophy. Scattered hypoattenuat ing areas are seen within the cerebral white matter, nonspecific but most often seen with chronic shilpi rovascular ischemic changes; mild in degree. Cerebellum: No acute abnormality seen. Posterior fossa evaluation is limited by streak artifacts from dental hardware. Mass effect: No evidence of mass effect or midline shift. Intracranial vasculature: Atherosclerotic calcifications of the larger arteries near the skull base. Soft tissues: A 5 mm soft tissue nodular focus in the right anterior scalp image 51 which appears sli ghtly larger compared to the prior study. Region of somewhat masslike soft tissue attenuation in the posterior soft tissues overlying the right occipital region appears grossly stable as seen but there is partial exclusion from the field of view. Visualized orbits: Orbital contents appear grossly intact. Calvarium/osseous structures: No evidence of calvarial fracture. Paranasal sinuses and mastoid air cells: Partial opacification appears due to mild to moderate chroni c mucosal thickening throughout the ethmoid air cells. No significant fluid is seen. MRI is more sensitive for detecting acute processes such as infarct, and may be considered if clinica lly warranted. Cervical spine: Fracture: None seen. Osseous structures, spinal canal/neural foramina: Bony mineralization appears appropriate. No destruc tive lesion. Mild degenerative change of the atlantoaxial articulation anteriorly. Mild degenerative change of the craniocervical junction. There is mild/moderate multilevel degenerative disk disease th roughout the cervical spine with mild multilevel canal and neural foraminal stenoses. No critical navi nosis. Vertebral alignment: No traumatic malalignment. Neck soft tissues: No acute finding.. A few calcifications along the aortic arch and proximal great v essels can be seen. Other: Lung apices show no acute infiltrate or pneumothorax. Mild emphysematous changes and presumed scarring. IMPRESSION: CT head: 1. No acute intracranial hemorrhage, midline shift, or mass effect. 2. Mild atrophy and chronic microvascular ischemic changes in the white matter. 3. Mucosal thickening throughout the bilateral ethmoid air cells. No significant fluid is seen. 4. Nonspecific right scalp 5 mm nodular density anteriorly, seems slightly larger from previous in 2 018 but given the timeframe is considered probably benign. Please correlate and follow-up clinically. 5. Soft tissue changes in the posterior right scalp occipital region, similar to previous. Given the history of previous surgery in this area, this probably represents postoperative changes. Cervical spine: 1. No evidence of acute cervical spine fracture or traumatic malalignment. 2. Mild/moderate cervical spondylosis.
[2023-07-16 00:42] VITALS: BP 119/56; PULSE 68; RESP 19
== END 2023-07-16 00:15 | disposition home or self-care (01) ==
LOC: EC 19:33
DX: U07.1 COVID-19 (principal); I67.82 Cerebral ischemia; G31.9 Degenerative disease of nervous system, unspecified; M47.812 Spondylosis without myelopathy or radiculopathy, cervical region; I10 Essential (primary) hypertension; Z88.0 Allergy status to penicillin; Z88.1 Allergy status to other antibiotic agents; Z88.8 Allergy status to other drugs, medicaments and biological substances; Z79.899 Other long term (current) drug therapy
CPT/HCPCS: 36415; 70450; 71046; 72125; 80053; 81003; 83605; 83735; 84100; 84484; 85025; 85610; 85730; 93005; 96360; 96361; 99285

== ENCOUNTER 2023-10-27 21:05 | Emergency (ER) | payer MEDICARE ==
--- NOTE | 2023-10-27 22:18 | ED ---
General Adult HPI - General Chief complaint: Recheck/Abnormal Lab/Rx Stated complaint: Post-Op Bleeding Time Seen by Provider: 10/27/23 21:14 Source: patient Mode of arrival: ambulatory Limitations: no limitations - History of Present Illness Initial comments: Patient is a 78-year-old man who presents with complaint that he is continuing to have bleeding from a subcutaneous cyst that was lanced by his primary physician. The patient states that he had noticed swelling on his left forearm going on for a number days. He saw his primary physician who performed a stab incision. The patient states that he has had bleeding that saturated 3 dressings. He denies having symptoms of anemia. He is not having chest pain, dyspnea, palpitations, lightheadedness or syncope. He does take Plavix and Eliquis. His physician had advised him to hold those medications for today. -: hour(s) Location: left, upper extremity Severity scale (1-10): 0 Consistency: constant Improves with: none Worsens with: none Associated Symptoms: denies other symptoms Treatments Prior to Arrival: none - Related Data Home Medications Medication Instructions Recorded Confirmed Apixaban [Eliquis] 5 mg PO BID 11/01/14 11/20/22 Colesevelam [Welchol] 1,875 mg PO BID 11/01/14 11/20/22 Glimepiride [Amaryl] 4 mg PO DAILY 11/01/14 11/20/22 Metoprolol Tartrate 25 mg PO HS 11/01/14 11/20/22 Multivitamin [Men's Multi-Vitamin] 1 tab PO DAILY 11/01/14 11/20/22 [place]-3 Acid Ethyl Esters [Lovaza] 2 gm PO BID 11/01/14 11/20/22 Ranolazine [Ranexa] 1,000 mg PO BID 11/01/14 11/20/22 gemfibroziL [Lopid] 1,200 mg PO HS 11/01/14 11/20/22 Fluticasone Nasal [place] [Flonase 1 spr EA NOSTRIL BID 05/31/17 11/20/22 Nasal [place]] Cholecalciferol [Vitamin D3 (125 250 mcg PO DAILY 11/20/22 11/20/22 Mcg = 5000 Iu)] Clopidogrel [Plavix] 75 mg PO HS 11/20/22 11/20/22 Empagliflozin [Jardiance] 25 mg PO DAILY 11/20/22 11/20/22 Latanoprost [Latanoprost 0.005%] 1 drop BOTH EYES HS 11/20/22 11/20/22 Nitroglycerin Sl Tabs [Nitrostat] 0.4 mg SUBLINGUAL Q5M PRN 11/20/22 11/20/22 Pravastatin Sodium [Pravachol] 20 mg PO HS 11/20/22 11/20/22 bisacodyL [Dulcolax] 5 mg PO HS 11/20/22 11/20/22 lisinopriL [Zestril] 2.5 mg PO MOWEFR 11/20/22 11/20/22 metFORMIN HCL [Glucophage] 850 mg PO BID 11/20/22 11/20/22 Previous Rx's Medication Instructions Recorded Molnupiravir [Lagevrio (Eua)] 800 mg PO Q12HR 5 Days #40 cap 07/15/23 Molnupiravir [Lagevrio (Eua)] 800 mg PO BID 5 Days #40 cap 07/16/23 Allergies Allergy/AdvReac Type Severity Reaction Status Date / Time amoxicillin Allergy Unknown Verified 10/27/23 21:12 ampicillin Allergy Unknown Verified 10/27/23 21:12 cortisone Allergy Unknown Verified 10/27/23 21:12 erythromycin base Allergy Unknown Verified 10/27/23 21:12 Penicillins Allergy Unknown Verified 10/27/23 21:12 prednisone Allergy Unknown Verified 10/27/23 21:12 Review of Systems ROS Statement: Those systems with pertinent positive or pertinent negative responses have been documented in the HPI. ROS Other: All systems not noted in ROS Statement are negative. Constitutional: Denies: fever Respiratory: Denies: dyspnea Cardiovascular: Denies: chest pain, palpitations Skin: Denies: rash, lesions Neurological: Denies: headache Hematological/Lymphatic: Reports: easy bleeding Past Medical History Past Medical History: Coronary Artery Disease (CAD), Chest Pain / Angina, Diabetes Mellitus, Hyperlipidemia, Hypertension, Myocardial Infarction ([place]) History of Any Multi-Drug Resistant Organisms: None Reported Past Surgical History: Coronary Bypass/CABG, Heart Catheterization, Heart Catheterization With Stent Past Psychological History: No Psychological Hx Reported Smoking Status: Never smoker Past Alcohol Use History: Occasional Past Drug Use History: None Reported General Exam Limitations: no limitations General appearance: alert, in no apparent distress Head exam: Present: atraumatic Eye exam: Present: normal appearance. Absent: scleral icterus, conjunctival injection ENT exam: Present: normal oropharynx Respiratory exam: Present: normal lung sounds bilaterally. Absent: respiratory distress, wheezes, rales, rhonchi, stridor, accessory muscle use Cardiovascular Exam: Present: regular rate, normal rhythm, normal heart sounds. Absent: systolic murmur, diastolic murmur, rubs, gallop Extremities exam: Present: full ROM, normal capillary refill, other (The patient does have stab incision to the forearm with small amount of slow bleeding) Neurological exam: Present: alert Skin exam: Present: warm, dry, normal color. Absent: pallor Course Vital Signs 10/27/23 10/27/23 21:10 22:52 Temperature 98.0 F 98.6 F Pulse Rate 60 64 Respiratory 18 16 Rate Blood Pressure 146/62 135/69 O2 Sat by Pulse 99 98 Oximetry Medical Decision Making - Medical Decision Making Was pt. sent in by a medical professional or institution (Dr. PA, TAPPET ADJUSTER, urgent care, hospital, or snf...) When possible be specific @ -[No] Did you speak to anyone other than the patient for history (EMS, parent, family, police, friend...)? What history was obtained from this source @ -[No] Did you review nursing and triage notes (agree or disagree)? Why? @ -[I reviewed and agree with nursing and triage notes] Were old charts reviewed (outside hosp., previous admission, EMS record, old EKG, old radiological studies, urgent care reports/EKG's, snf records)? Report findings @ -[No old charts were reviewed] Differential Diagnosis (chest pain, altered mental status, abdominal pain women, abdominal pain men, vaginal bleeding, weakness, fever, dyspnea, syncope, headache, dizziness, GI bleed, back pain, seizure, CVA, palpatations, mental health, musculoskeletal)? @ -[ postprocedure hemorrhage EKG interpreted by me (3pts min.). @ -[As above] X-rays interpreted by me (1pt min.). @ -[None done] CT interpreted by me (1pt min.). @ -[None done] U/S interpreted by me (1pt. min.). @ -[None done] What testing was considered but not performed or refused? (CT, X-rays, U/S, labs)? Why? @ -[None] What meds were considered but not given or refused? Why? @ -[None] Did you discuss the management of the patient with other professionals (professionals i.e. , PA, TAPPET ADJUSTER, lab, RT, psych nurse, social insurance specialist, pattern grader supervisor, teacher, security control room officer, casework manager)? Give summary @ -[No] Was smoking cessation discussed for >3mins.? @ -[No] Was critical care preformed (if so, how long)? @ -[No] Were there social determinants of health that impacted care today? How? (Homelessness, low income, unemployed, alcoholism, drug addiction, transportation, low edu. Level, literacy, decrease access to med. care, nursing home, rehab)? @ -[No] Was there de-escalation of care discussed even if they declined (Discuss DNR or withdrawal of care, Hospice)? DNR status @ -[No] What co-morbidities impacted this encounter? (DM, HTN, Smoking, COPD, CAD, Cancer, CVA, ARF, Chemo, Hep., AIDS, mental health diagnosis, sleep apnea, morbid obesity)? @ -[Novel anticoagulant use and antiplatelet use Was patient admitted / discharged? Hospital course, mention meds given and route, prescriptions, significant lab abnormalities, going to OR and other pertinent info. @ -[Patient presents to have evaluation after continued bleeding following clinic procedure. I personally applied pressure to the bleeding for between 15 and 20 minutes which resulted in good hemostasis. Discussed appropriate further care and follow-up as well as return parameters. Undiagnosed new problem with uncertain prognosis? @ -[No] Drug Therapy requiring intensive monitoring for toxicity (Heparin, Nitro, Insulin, Cardizem)? @ -[No] Were any procedures done? @ -[No] Diagnosis/symptom? @ -[Postprocedural hemorrhage Acute, or Chronic, or Acute on Chronic? @ -[Acute Uncomplicated (without systemic symptoms) or Complicated (systemic symptoms)? @ -[Uncomplicated Side effects of treatment? @ -[No] Exacerbation, Progression, or Severe Exacerbation? @ -[No] Poses a threat to life or bodily function? How? (Chest pain, USA, NC, pneumonia, PE, COPD, DKA, ARF, appy, cholecystitis, CVA, Diverticulitis, Homicidal, Suicidal, threat to staff... and all critical care pts) @ -[No] Disposition Clinical Impression: Bleeding from wound Disposition: HOME SELF-CARE Condition: Good Instructions (If sedation given, give patient instructions): Postoperative Bleeding (ED) Is patient prescribed a controlled substance at d/c from ED?: No Referrals: Nolan Dawn MD [Primary Care Provider] - 1-2 days
[2023-10-27 22:52] VITALS: BP 135/69; PULSE 64; RESP 16; TEMP 98.6
== END 2023-10-27 22:52 | disposition home or self-care (01) ==
LOC: EC 21:05
DX: L76.22 Postprocedural hemorrhage of skin and subcutaneous tissue following other procedure (principal); Z88.0 Allergy status to penicillin; Z88.1 Allergy status to other antibiotic agents; Z88.8 Allergy status to other drugs, medicaments and biological substances
CPT/HCPCS: 99283

== ENCOUNTER 2024-09-05 13:33 | Inpatient (IN) | payer MEDICARE ==
[2024-09-05] MEDS ORDERED: RX INFO: IV CONTRAST WAS GIVEN 1 EACH MISC MISCELLANE PRN (14:01)
--- NOTE | 2024-09-05 14:03 | ED ---
General Adult HPI - General Chief complaint: Back Pain/Injury Stated complaint: Back pain Time Seen by Provider: 09/05/24 13:40 Source: patient Mode of arrival: ambulatory Limitations: no limitations - History of Present Illness Initial comments: 79-year-old male from Dr. Montana's office for intrascapular back pain. Dr. Dawn was concern for cardiac etiology and therefore sent the patient into the hospital for cardiac rule out - Related Data Home Medications Medication Instructions Recorded Confirmed Apixaban [Eliquis] 5 mg PO BID 11/01/14 09/05/24 Colesevelam [Welchol] 1,875 mg PO BID 11/01/14 09/05/24 Glimepiride [Amaryl] 4 mg PO BID 11/01/14 09/05/24 Metoprolol Tartrate 25 mg PO HS 11/01/14 09/05/24 Multivitamin [Men's Multi-Vitamin] 1 tab PO DAILY 11/01/14 09/05/24 [place]-3 Acid Ethyl Esters [Lovaza] 2 gm PO BID 11/01/14 09/05/24 Ranolazine [Ranexa] 1,000 mg PO BID 11/01/14 09/05/24 gemfibroziL [Lopid] 600 mg PO BID 11/01/14 09/05/24 Fluticasone Nasal [place] [Flonase 1 spr EA NOSTRIL BID 05/31/17 09/05/24 Nasal [place]] Cholecalciferol [Vitamin D3 (125 250 mcg PO DAILY 11/20/22 09/05/24 Mcg = 5000 Iu)] Clopidogrel [Plavix] 75 mg PO HS 11/20/22 09/05/24 Empagliflozin [Jardiance] 25 mg PO DAILY 11/20/22 09/05/24 Latanoprost [Latanoprost 0.005%] 1 drop BOTH EYES HS 11/20/22 09/05/24 Nitroglycerin Sl Tabs [Nitrostat] 0.4 mg SUBLINGUAL Q5M PRN 11/20/22 09/05/24 Pravastatin Sodium [Pravachol] 20 mg PO HS 11/20/22 09/05/24 bisacodyL [Dulcolax] 5 mg PO BID 11/20/22 09/05/24 lisinopriL [Zestril] 2.5 mg PO MOWEFR 11/20/22 09/05/24 metFORMIN HCL [Glucophage] 850 mg PO BID 11/20/22 09/05/24 Aspirin EC [Ecotrin Low Dose] 81 mg PO DAILY 09/05/24 09/05/24 Allergies Allergy/AdvReac Type Severity Reaction Status Date / Time amoxicillin Allergy Unknown Verified 09/05/24 15:27 ampicillin Allergy Unknown Verified 09/05/24 15:27 cortisone Allergy Unknown Verified 09/05/24 15:27 erythromycin base Allergy Unknown Verified 09/05/24 15:27 Penicillins Allergy Unknown Verified 09/05/24 15:27 prednisone Allergy Unknown Verified 09/05/24 15:27 Review of Systems ROS Statement: Those systems with pertinent positive or pertinent negative responses have been documented in the HPI. ROS Other: All systems not noted in ROS Statement are negative. Past Medical History Past Medical History: Coronary Artery Disease (CAD), Chest Pain / Angina, Diabetes Mellitus, Hyperlipidemia, Hypertension, Myocardial Infarction ([place]) History of Any Multi-Drug Resistant Organisms: None Reported Past Surgical History: Coronary Bypass/CABG, Heart Catheterization, Heart [place] terization With Stent Past Psychological History: No Psychological Hx Reported Smoking Status: Never smoker Past Alcohol Use History: Occasional Past Drug Use History: None Reported General Exam Limitations: no limitations Course Vital Signs 09/05/24 09/05/24 09/05/24 13:39 16:00 18:00 Temperature 98 F Pulse Rate 78 70 70 Respiratory 16 18 18 Rate Blood Pressure 168/80 130/62 125/60 O2 Sat by Pulse 98 98 98 Oximetry Medical Decision Making - Medical Decision Making Was pt. sent in by a medical professional or institution (, PA, MANAGER STORAGE, urgent care, hospital, or [place] health care facility...) When possible be specific @ -[No] Did you speak to anyone other than the patient for history (EMS, parent, family, police, friend...)? What history was obtained from this source @ -[No] Did you review nursing and triage notes (agree or disagree)? Why? @ -[I reviewed and agree with nursing and triage notes] Were old charts reviewed (outside hosp., previous admission, EMS record, old EKG, old radiological studies, urgent care reports/EKG's, [place] health [facility] facility records)? Report findings @ -[No old charts were reviewed] Differential Diagnosis (chest pain, altered mental status, abdominal pain women, abdominal pain men, vaginal bleeding, weakness, fever, dyspnea, syncope, headache, dizziness, GI bleed, back pain, seizure, CVA, palpatations, mental health, musculoskeletal)? @ -[not applicable] EKG interpreted by me (3pts min.). @ -Yes and demonstrates sinus rhythm with a rate of 68. MO interval 187. QRS 158. QTc 443. Left bundle branch block. No acute ST segment elevations consistent with ischemia X-rays interpreted by me (1pt min.). @ -[None done] CT interpreted by me (1pt min.). @ -[None done] U/S interpreted by me (1pt. min.). @ -[None done] What testing was considered but not performed or refused? (CT, X-rays, U/S, labs)? Why? @ -[None] What meds were considered but not given or refused? Why? @ -[None] Did you discuss the management of the patient with other professionals (professionals i.e. , PA, MANAGER STORAGE, lab, RT, psych nurse, social service director, welt sole layer, teacher, technology officer, therapeutic case manager)? Give summary @ -[No] Was smoking cessation discussed for >3mins.? @ -[No] Was critical care preformed (if so, how long)? @ -[No] Were there social determinants of health that impacted care today? How? (Homelessness, low income, unemployed, alcoholism, drug addiction, transportation, low edu. Level, literacy, decrease access to med. care, long term, rehab)? @ -[No] Was there de-escalation of care discussed even if they declined (Discuss DNR or withdrawal of care, Hospice)? DNR status @ -[No] What co-morbidities impacted this encounter? (DM, HTN, Smoking, COPD, CAD, Cancer, CVA, ARF, Chemo, Hep., AIDS, mental health diagnosis, sleep apnea, morbid obesity)? @ -[None] Was patient admitted / discharged? Hospital course, mention meds given and route, prescriptions, significant lab abnormalities, going to OR and other pe rtinent info. @ -[hospital course] Undiagnosed new problem with uncertain prognosis? @ -[No] Drug Therapy requiring intensive monitoring for toxicity (Heparin, Nitro, Insulin, Cardizem)? @ -[No] Were any procedures done? @ -[No] Diagnosis/symptom? @ -[default] Acute, or Chronic, or Acute on Chronic? @ -[default] Uncomplicated (without systemic symptoms) or Complicated (systemic symptoms)? @ -[default] Side effects of treatment? @ -[No] Exacerbation, Progression, or Severe Exacerbation? @ -[No] Poses a threat to life or bodily function? How? (Chest pain, [place], [place], pneumonia, PE, COPD, DKA, ARF, appy, cholecystitis, CVA, Diverticulitis, Homicidal, Suicidal, threat to staff... and all critical care pts) @ -[No] - Lab Data Result diagrams: 09/05/24 15:12 09/05/24 15:12 Lab Results 09/05/24 09/05/24 09/05/24 Range/Units 15:12 15:12 15:12 WBC 5.21 (4.50-10.00) 10*3/uL RBC 4.23 L (4.40-5.60) 10*6/uL Hgb 12.0 L (13.0-17.0) g/dL Hct 36.7 L (39.6-50.0) % MCV 86.8 (80.0-97.0) fL MCH 28.4 (27.0-32.0) pg MCHC 32.7 (32.0-37.0) g/dL Plt Count 300 (140-440) 10*3/uL MPV 8.2 L (9.5-12.2) fL Immature Gran % (Auto) 0.6 % Neutrophils % 55.8 % Lymphocytes % 28.0 % Monocytes % 12.3 % Eosinophils % 2.7 % Basophils % 0.6 % Immature Gran # 0.03 (0.00-0.04) 10*3/uL Neutrophils # 2.91 (1.80-7.70) 10*3/uL Lymphocytes # 1.46 (0.90-5.00) 10*3/uL Monocytes # 0.64 (0.20-1.00) 10*3/uL Eosinophils # 0.14 (0.04-0.35) 10*3/uL Basophils # 0.03 (0.00-0.10) 10*3/uL PT 10.3 (10.0-12.5) sec INR 0.9 (<1.2) APTT 24.2 (22.0-30.0) sec Sodium 136 L (137-145) mmol/L Potassium 4.2 (3.5-5.1) mmol/L Chloride 103 (98-107) mmol/L Carbon Dioxide 23 (22-30) mmol/L Anion Gap 10 mmol/L BUN 28 H (9-20) mg/dL Creatinine 0.75 (0.66-1.25) mg/dL Est GFR (CKD-EPI)AfAm >90 (>60 ml/min/1.73 sqM) Est GFR (CKD-EPI)NonAf 87 (>60 ml/min/1.73 sqM) Glucose 209 H (74-99) mg/dL Calcium 10.3 H (8.4-10.2) mg/dL Magnesium 2.2 (1.6-2.3) mg/dL Total Bilirubin 0.4 (0.2-1.3) mg/dL AST 26 (17-59) U/L ALT 15 (4-49) U/L Alkaline Phosphatase 72 (38-126) U/L Troponin I (0.000-0.034) ng/mL NT-Pro-B Natriuret Pep 171 pg/mL Total Protein 7.1 (6.3-8.2) g/dL Albumin 4.2 (3.5-5.0) g/dL Lipase 213 (23-300) U/L 09/05/24 Range/Units 15:12 WBC (4.50-10.00) 10*3/uL RBC (4.40-5.60) 10*6/uL Hgb (13.0-17.0) g/dL Hct (39.6-50.0) % MCV (80.0-97.0) fL MCH (27.0-32.0) pg MCHC (32.0-37.0) g/dL Plt Count (140-440) 10*3/uL MPV (9.5-12.2) fL Immature Gran % (Auto) % Neutrophils % % Lymphocytes % % Monocytes % % Eosinophils % % Basophils % % Immature Gran # (0.00-0.04) 10*3/uL Neutrophils # (1.80-7.70) 10*3/uL Lymphocytes # (0.90-5.00) 10*3/uL Monocytes # (0.20-1.00) 10*3/uL Eosinophils # (0.04-0.35) 10*3/uL Basophils # (0.00-0.10) 10*3/uL PT (10.0-12.5) sec INR (<1.2) APTT (22.0-30.0) sec Sodium (137-145) mmol/L Potassium (3.5-5.1) mmol/L Chloride (98-107) mmol/L Carbon Dioxide (22-30) mmol/L Anion Gap mmol/L BUN (9-20) mg/dL Creatinine (0.66-1.25) mg/dL Est GFR (CKD-EPI)AfAm (>60 ml/min/1.73 sqM) Est GFR (CKD-EPI)NonAf (>60 ml/min/1.73 sqM) Glucose (74-99) mg/dL Calcium (8.4-10.2) mg/dL Magnesium (1.6-2.3) mg/dL Total Bilirubin (0.2-1.3) mg/dL AST (17-59) U/L ALT (4-49) U/L Alkaline Phosphatase (38-126) U/L Troponin I <0.012 (0.000-0.034) ng/mL NT-Pro-B Natriuret Pep pg/mL Total Protein (6.3-8.2) g/dL Albumin (3.5-5.0) g/dL Lipase (23-300) U/L Disposition Clinical Impression: Flank pain, Liver mass, Compression fracture of T10 vertebra, Lung nodules Disposition: ADMITTED IP TO THIS [facility] Condition: Stable Is patient prescribed a controlled substance at d/c from ED?: No Time of Disposition: 18:57 Decision to Admit Reason: Admit from EC Decision Date: 09/05/24 Decision Time: 18:57
[2024-09-05 15:18] LABS: Basophils # (A) 0.03 10*3/uL (0.00-0.10); Basophils % (A) 0.6 %; Eosinophils # (A) 0.14 10*3/uL (0.04-0.35); Eosinophils % (A) 2.7 %; HCT 36.7 % (39.6-50.0); Lymphocytes # (A) 1.46 10*3/uL (0.90-5.00); MCH 28.4 pg (27.0-32.0); MCHC 32.7 g/dL (32.0-37.0); MCV 86.8 fL (80.0-97.0); Mean Platelet Volume 8.2 fL (9.5-12.2); Monocytes # (A) 0.64 10*3/uL (0.20-1.00); Monocytes % (A) 12.3 %; Neutrophils # (A) 2.91 10*3/uL (1.80-7.70); Neutrophils % (A) 55.8 %; Platelet Count 300 10*3/uL (140-440); RBC 4.23 10*6/uL (4.40-5.60); RDW 13.6 % (11.5-14.5); WBC 5.21 10*3/uL (4.50-10.00)
[2024-09-05 15:32] LABS: ALT 15 U/L (4-49); AST 26 U/L (17-59); African American GFR (CKD) >90 (>60 ml/min/1.73 sqM); Albumin 4.2 g/dL (3.5-5.0); Alkaline Phosphatase 72 U/L (38-126); Anion Gap 10 mmol/L; Blood Urea Nitrogen 28 mg/dL (9-20); Calcium 10.3 mg/dL (8.4-10.2); Carbon Dioxide 23 mmol/L (22-30); Chloride 103 mmol/L (98-107); Glucose 209 mg/dL (74-99); INR 0.9 (<1.2); Lipase 213 U/L (23-300); Magnesium 2.2 mg/dL (1.6-2.3); Non-African American GFR(CKD) 87 (>60 ml/min/1.73 sqM); Partial Thromboplastin Time 24.2 sec (22.0-30.0); Potassium 4.2 mmol/L (3.5-5.1); Prothrombin Time 10.3 sec (10.0-12.5); Sodium 136 mmol/L (137-145); Total Bilirubin 0.4 mg/dL (0.2-1.3); Total Protein 7.1 g/dL (6.3-8.2)
[2024-09-05 15:41] LABS: NT-Pro-B-Type Natriuretic Pept 171 pg/mL
--- NOTE | 2024-09-05 17:40 | CT ---
EXAMINATION TYPE: CT chest w con DATE OF EXAM: 09/05/2024 4:16 PM COMPARISON: Multiple prior chest radiograph, most recently dated 07/15/2023. CLINICAL INDICATION: Male, 79 years old with history of instrascapular back pain; PHH, Intrascapular back pain x 4 days. TECHNIQUE: Multiple axial images were obtained through the chest. Sagittal and coronal reformats were created for review. MIP was performed on a separate workstation. Contrast used:100 mL of Isovue 300 with IV Contrast (None if empty) CT DLP: 388.7 mGycm, Automated exposure control for dose reduction was used. FINDINGS: LUNGS/ PLEURA: No acute focal consolidation, pleural effusion or pneumothorax. 7 mm ground glass nodu le in left upper lobe (image [id number]). 4 mm subpleural nodule in left lower lobe (image 46/69). 3 ludin l in nodule in the right lower lobe (image 22). Foraminotomy right lower lobe (image 27). Indetermina te subsolid nodular density in the right lower lobe measuring 5.9 mm with formal nasal component (eliud ge 38). AIRWAY: Patent and unremarkable. HEART: Size within normal limits.Coronary artery calcifications. MEDIASTINUM: No gross evidence of adenopathy. VASCULATURE: No aortic aneurysm. MUSCULOSKELETAL: Osseous structures diffusely demineralized. There is an acute compression fracture i nvolving the T10 vertebral body with fracture line seen extending into the T9/T10 disc space. Multile anton thoracic spine degenerative changes. Median sternotomy wires. Post surgical changes of CABG. SOFT TISSUES/LYMPH NODES: Unremarkable. LOWER NECK: No significant findings. UPPER ABDOMEN: No acute findings. 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 Inde terminate heterogeneous hypodense mass in the right hepatic lobe measuring 8.8 x 5.6 cm, incompletely evaluated on this single phase study. Decreased hepatic parenchymal attenuation suggesting steatosis . Additionally, there is likely cirrhotic liver morphology with nodularity and the external hepatic s urface contour. Complex splenic granulomas. IMPRESSION: 1. Acute mild to moderate compression fracture of the T10 vertebral body with fracture line visualiz ed extending into the T9/T10 disc space as described above. 2. Cirrhotic liver morphology and indeterminate 8.8 cm mass in the right hepatic lobe suspicious for hepatocellular carcinoma. Recommend outpatient MRI utilizing IV contrast and correlation with alpha- fetoprotein levels. 3. Multiple indeterminate subcentimeter pulmonary nodules measuring up to 5 mm as described above. R ecommend follow-up CT chest in 6-12 months to confirm stability. 4. Additional findings as above. [facility], , 09/05/2024 5:38 PM
[2024-09-05] MEDS: ACETAMINOPHEN TAB 500 MG TAB PO STA (18:08)
[2024-09-05] MEDS ORDERED: ACETAMINOPHEN TAB 325 MG TAB PO PRN (18:57)
[2024-09-05] MEDS ORDERED: NALOXONE 0.4 MG/ML 1 ML VIAL IV PRN (18:57)
[2024-09-05] MEDS ORDERED: NITROGLYCERIN SL TABS 0.4 MG TAB SUBLINGUAL PRN (21:50)
[2024-09-05] MEDS: APIXABAN 5 MG TAB PO SCH (22:24)
[2024-09-05] MEDS: PRAVASTATIN SODIUM 20 MG TAB PO SCH (22:24)
[2024-09-05] MEDS: RANOLAZINE 500 MG TAB.ER.12H PO SCH (22:24)
[2024-09-05] MEDS: METOPROLOL TARTRATE 25 MG TAB PO SCH (22:24)
[2024-09-05] MEDS: bisacodyL 5 MG TABLET.DR PO SCH (22:24)
[2024-09-05] MEDS: CLOPIDOGREL 75 MG TAB PO SCH (22:24)
[2024-09-05] MEDS: metFORMIN 850 MG TAB PO SCH (22:35)
[2024-09-05] MEDS: GLIMEPIRIDE 4 MG TAB PO SCH (22:37)
[2024-09-05] MEDS: LATANOPROST 0.005% OPHTH DROPS 2.5 ML BTL BOTH EYES SCH (22:38)
[2024-09-05] MEDS: FLUTICASONE NASAL 50MCG/SPRAY 16GM BTL EA NOSTRIL SCH (22:38)
[2024-09-05] MEDS: COLESEVELAM 625 MG PO SCH (22:39)
[2024-09-06] MEDS: NON FORMULARY DRUG (Omega-3 Acid Ethyl Esters [Lovaza] 1 GM Capsule) PO SCH
--- NOTE | 2024-09-06 00:24 | HP ---
HISTORY AND PHYSICAL CHIEF COMPLAINT: Left flank and left posterior chest pain. 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 He was started on treatment and then came back in several days later complaining of left flank and left posterior chest pain, which did not seem to be related to his earlier problem. He has a long-standing history of diabetes, coronary artery disease, ASCVD. He has had coronary artery bypass graft in the past. He denied any significant shortness of breath, diaphoresis, cough, hemoptysis, sputum production, fever, chills, etc. In the emergency room, his urine was clear. There are no red cells. He has had a history of renal stone many many years ago. X-rays of the chest were unremarkable. There was enough concern that it was decided he should be sent to the emergency room for further studies including possible CT scans of the chest and possibly the abdomen. There was concern about the possibility of a vascular issues, this is an aneurysm dissection. In the emergency room, his studies suggested a mass in the liver with other nodules possibly in the lungs. It also looked as though he had a compression fracture in the dorsal spine, which was unsuspected. He has never had a history of malignancy. REVIEW OF SYSTEMS: Unremarkable. He has had no other symptoms. He has had no radiculopathy. Past medical history, family history, personal and social histories reveal that he is allergic to penicillin, statins, erythromycin, clindamycin and Keflex. MEDICATIONS: Include glimepiride, pravastatin, metoprolol, Jardiance, metformin, gemfibrozil, lisinopril, aspirin, Eliquis, Ranexa, Travatan eye drops. He used to smoke, but he quit, but he does not drink alcohol. PHYSICAL EXAMINATION: VITAL SIGNS: Blood pressure 138/78 with a pulse 75 and regular, respirations of 16. He is afebrile. GENERAL: Appeared to be well developed, well nourished, no acute distress. SKIN: Color is normal. Skin is warm, dry. HEAD, EARS, EYES, NOSE, MOUTH AND THROAT: Normal. NECK: Veins not distended. CHEST: Clear. CARDIAC: Demonstrated what sounded like sinus rhythm. ABDOMEN: Slightly protuberant and soft without any masses or visceromegaly. He was tender in the left flank. EXTREMITIES: Normal. NEUROLOGICAL: He is intact. HOSPITAL DIAGNOSES: 1. Left flank and left posterior chest pain. 2. Coronary artery disease. 3. Atherosclerotic cardiovascular disease. 4. Diabetes. 5. Hepatic lesion. 6. Pulmonary nodules. 7. Compression fracture of the spine. PLAN: 1. Bedrest. 2. IV fluids. 3. Analgesics. 4. Consult with Orthopedics and Oncology. 5. Bone scan. 6. PSA. MMODL / IJN: [id number] /
[2024-09-06] MEDS: MORPHINE SULFATE 4 MG/ML SYRINGE IV PRN (00:47)
[2024-09-06 08:15] VITALS: RESP 16
[2024-09-06] MEDS: ASPIRIN 81 MG PO SCH (10:24)
[2024-09-06] MEDS: DAPAGLIFLOZIN PROPANEDIOL 10 MG TABLET PO SCH (10:24)
[2024-09-06] MEDS: FENOFIBRATE 160 MG TAB PO SCH (10:25)
[2024-09-06] MEDS: metFORMIN 850 MG TAB PO SCH (10:25)
[2024-09-06] MEDS: CHOLECALCIFEROL 125 MCG (5000 IU) TABLET PO SCH (10:25)
[2024-09-06] MEDS: MULTIVITAMINS, THERA 1 EACH TAB PO SCH (10:25)
[2024-09-06] MEDS: Colesevelam 625 MG Tab PO SCH (11:00)
[2024-09-06] MEDS ORDERED: HYDROcodone/APAP 5-325MG 1 EACH TAB PO PRN (11:08)
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
[2024-09-06 15:11] LABS: Basophils # (A) 0.03 X 10*3/uL (0.00-0.10); Basophils % (A) 0.6 %; Eosinophils # (A) 0.09 X 10*3/uL (0.04-0.35); Eosinophils % (A) 1.8 %; HCT 38.9 % (39.6-50.0); HGB 12.1 g/dL (13.0-17.0); Lymphocytes # (A) 1.11 X 10*3/uL (0.90-5.00); Lymphocytes % (A) 21.7 %; MCH 27.9 pg (27.0-32.0); MCHC 31.1 g/dL (32.0-37.0); MCV 89.6 FL (80.0-97.0); Mean Platelet Volume 8.5 FL (9.5-12.2); Monocytes # (A) 0.56 X 10*3/uL (0.20-1.00); Monocytes % (A) 10.9 %; NRBC Per 100 WBC 0 X 10*3/uL (0.00-0.01); Neutrophils % (A) 64.4 %; Platelet Count 320 X 10*3/uL (140-440); RBC 4.34 X 10*6/uL (4.40-5.60); RDW 13.5 % (11.5-14.5); WBC 5.12 X 10*3/uL (4.50-10.00)
[2024-09-06 15:22] LABS: BUN/Creat Ratio 30.56 Ratio (12.00-20.00); Blood Urea Nitrogen 27.5 mg/dL (9.0-27.0); Calcium 9.8 mg/dL (8.7-10.3); Carbon Dioxide 22.5 mmol/L (21.6-31.8); Chloride 101 mmol/L (96-109); Glucose 439 mg/dL (70-110); Potassium 5.3 mmol/L (3.5-5.5); Sodium 136 mmol/L (135-145)
[2024-09-06] MEDS: IOPAMIDOL CONTRAST (ORAL USE) VIAL PO PRN (16:04)
--- NOTE | 2024-09-06 18:23 | CT ---
EXAMINATION TYPE: CT abdomen pelvis w con DATE OF EXAM: 09/06/2024 5:55 PM COMPARISON: CT chest. CLINICAL INDICATION: Male, 79 years old with history of liver mass noted on CT chest; Abnormality of liver found on prior CT chest. TECHNIQUE: Axial CT abdomen pelvis w con;Sagittal and coronal reformats were created on a separate w orkstation. Contrast used:100 ml mL of Isovue 300 with IV Contrast, (none if empty) Oral contrast used: with Oral Contrast (none if empty) CT DLP: 1325.0 mGycm, Automated exposure control for dose reduction was used. FINDINGS: LOWER CHEST: Partially calcified right pulmonary hilum lymph nodes. Right lower lobe calcified granul bassam measuring 4 mm. Few other small distal spinal lungs. Aortic valve calcifications along with coron alexis artery calcifications. ABDOMEN LIVER: Geographic area with ill-defined margins within the right liver which is predominantly low att enuation in the liver 7.8 x 8.5 x 7.1 cm. Is located in high position in the dome of which makes it i naccessible to percutaneous biopsy. GALLBLADDER AND BILE DUCTS: The gallbladder is surgically absent. PANCREAS: Unremarkable. SPLEEN: Unremarkable. 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 KIDNEYS AND URETERS: No evidence of hydronephrosis or obstructing renal calculus. The ureters are unr emarkable. PELVIS BLADDER: No evidence for wall thickening or mass given limitations of exam. REPRODUCTIVE: Prostate is enlarged in size measuring 5.9 cm in transverse dimension. ABDOMEN & PELVIS STOMACH AND BOWEL: No evidence of bowel obstruction. PERITONEUM/RETROPERITONEUM: No evidence of pneumoperitoneum or free fluid. VASCULATURE: No evidence of aortic aneurysm. MUSCULOSKELETAL: No acute osseous abnormalities. Moderate disc degeneration changes are present throu ghout the thoracolumbar spine. Suspected bone island in the L3 vertebral body small sclerotic focus p resent. LYMPH NODES: No gross evidence for lymphadenopathy. SOFT TISSUE/ABDOMINAL WALL: Unremarkable IMPRESSION: 1. Right hepatic lobe 7.8 x 8.5 x 7.1 cm mass suspicious for infiltrative HCC. Correlate with serum alpha-fetoprotein. Further evaluation with MRI may be of benefit. The location of this mass makes it inaccessible to percutaneous biopsy. 2. 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 3. Prostatomegaly, correlate with serum PSA. 4. Colonic diverticulosis. [facility], , 09/06/2024 6:21 PM
--- NOTE | 2024-09-06 20:56 | P.CONS ---
History of Present Illness - Reason for Consult Consult date: 09/06/24 liver mass Requesting physician: Rachel Baez - Chief Complaint back pain - History of Present Illness Patient is a 79-year-old male who presented emergency room with mid back pain. Patient states back pain began intrascapular region and radiated down left side. Denies nausea vomiting diarrhea and abdominal pain. Upon admit CT chest showed acute mild to moderate compression fracture of the T10 vertebral body with fracture line visualized extending in the T9/T10 disc space. Cirrhotic liver morphology and indeterminant 8.8 cm mass in the right hepatic lobe. Multiple indeterminate subcentimeter pulmonary nodules measuring up to 5 mm. Labs reviewed, WBC 5.2, hemoglobin 12.0, platelets 300,000. Creatinine 0.75, GFR 87. Calcium mildly elevated 10.3. Bilirubin, LFTs and lipase WNL. Patient denies personal history of cancer but brother did pass away from prostate cancer. Patient denies unintentional weight loss and night sweats. PSA, AFP and bone scan has been ordered by admitting team. Orthopedic surgery is also been consulted and plan for MRI of thoracic spine. Review of Systems 10 point ROS is negative except as stated in the HPI Past Medical History Past Medical History: Coronary Artery Disease (CAD), Chest Pain / Angina, Diabetes Mellitus, Hyperlipidemia, Hypertension, Myocardial Infarction (ID) History of Any Multi-Drug Resistant Organisms: None Reported Past Surgical History: Coronary Bypass/CABG, Heart Catheterization, Heart Catheterization With Stent Past Psychological History: No Psychological Hx Reported Smoking Status: Never smoker Past Alcohol Use History: Occasional Past Drug Use History: None Reported Medications and Allergies Home Medications Medication Instructions Recorded Confirmed Type Apixaban [Eliquis] 5 mg PO BID 11/01/14 09/05/24 History Colesevelam [Welchol] 1,875 mg PO BID 11/01/14 09/05/24 History Glimepiride [Amaryl] 4 mg PO BID 11/01/14 09/05/24 History Metoprolol Tartrate 25 mg PO HS 11/01/14 09/05/24 History Multivitamin [Men's Multi-Vitamin] 1 tab PO DAILY 11/01/14 09/05/24 History [place]-3 Acid Ethyl Esters [Lovaza] 2 gm PO BID 11/01/14 09/05/24 History Ranolazine [Ranexa] 1,000 mg PO BID 11/01/14 09/05/24 History gemfibroziL [Lopid] 600 mg PO BID 11/01/14 09/05/24 History Fluticasone Nasal [place] [Flonase 1 spr EA NOSTRIL BID 05/31/17 09/05/24 History Nasal [place]] Cholecalciferol [Vitamin D3 (125 250 mcg PO DAILY 11/20/22 09/05/24 History Mcg = 5000 Iu)] Clopidogrel [Plavix] 75 mg PO HS 11/20/22 09/05/24 History Empagliflozin [Jardiance] 25 mg PO DAILY 11/20/22 09/05/24 History Latanoprost [Latanoprost 0.005%] 1 drop BOTH EYES HS 11/20/22 09/05/24 History Nitroglycerin Sl Tabs [Nitrostat] 0.4 mg SUBLINGUAL Q5M PRN 11/20/22 09/05/24 History Pravastatin Sodium [Pravachol] 20 mg PO HS 11/20/22 09/05/24 History bisacodyL [Dulcolax] 5 mg PO BID 11/20/22 09/05/24 History lisinopriL [Zestril] 2.5 mg PO MOWEFR 11/20/22 09/05/24 History metFORMIN HCL [Glucophage] 850 mg PO BID 11/20/22 09/05/24 History Aspirin EC [Ecotrin Low Dose] 81 mg PO DAILY 09/05/24 09/05/24 History Allergies Allergy/AdvReac Type Severity Reaction Status Date / Time amoxicillin Allergy Unknown Verified 09/05/24 15:27 ampicillin Allergy Unknown Verified 09/05/24 15:27 cortisone Allergy Unknown Verified 09/05/24 15:27 erythromycin base Allergy Unknown Verified 09/05/24 15:27 Penicillins Allergy Unknown Verified 09/05/24 15:27 prednisone Allergy Unknown Verified 09/05/24 15:27 Physical Exam Vitals: Vital Signs Temp Pulse Pulse Resp BP BP Pulse Ox 09/06/24 07:45 98.2 F 84 16 123/69 90 L 09/06/24 06:48 62 18 112/61 94 L 09/06/24 00:43 60 18 129/65 99 09/05/24 18:00 70 18 125/60 98 09/05/24 16:00 70 18 130/62 98 09/05/24 13:39 98 F 78 16 168/80 98 - Constitutional General appearance: average body habitus, no acute distress - EENT Eyes: anicteric sclerae, EOMI ENT: hearing grossly normal - Respiratory breathing is even and unlabored - Cardiovascular skin warm and dry - Gastrointestinal General gastrointestinal: soft, no tenderness - Integumentary Integumentary: no cyanotic, no jaundiced - Neurologic Neurologic: CNII-XII intact - Musculoskeletal Musculoskeletal: strength equal bilaterally - Psychiatric Psychiatric: A&O x's 3 Results CBC & Chem 7: 09/06/24 10:57 09/06/24 10:57 Labs: Abnormal Lab Results - Last 24 Hours (Table) 09/05/24 09/05/24 Range/Units 15:12 15:12 RBC 4.23 L (4.40-5.60) 10*6/uL Hgb 12.0 L (13.0-17.0) g/dL Hct 36.7 L (39.6-50.0) % MPV 8.2 L (9.5-12.2) fL Sodium 136 L (137-145) mmol/L BUN 28 H (9-20) mg/dL Glucose 209 H (74-99) mg/dL Calcium 10.3 H (8.4-10.2) mg/dL CT scan - chest: report reviewed Assessment and Plan (1) Compression fracture of T10 vertebra Current Visit: Yes Status: Acute Priority: High Code(s): S22.070A - WEDGE COMPRESSION FRACTURE OF T9-T10 VERTEBRA, INIT SNOMED Code(s): 108958995 (2) Liver mass Current Visit: Yes Status: Acute Priority: High Code(s): R16.0 - HEPATOMEGALY, NOT ELSEWHERE CLASSIFIED SNOMED Code(s): 978796472 (3) Lung nodules Current Visit: Yes Status: Acute Priority: High Code(s): R91.8 - OTHER NONSPECIFIC ABNORMAL FINDING OF LUNG FIELD SNOMED Code(s): 069617046 Plan: Liver mass, pulmonary nodules: Presented with mid back pain. Patient states back pain began in the intrascapular region and radiated down left side. Denies nausea vomiting sophy rrhea and abdominal pain. Patient denies personal history of cancer but brother did pass away from prostate cancer. Patient denies unintentional weight loss and night sweats -Upon admit CT chest showed acute mild to moderate compression fracture of the T10 vertebral body with fracture line visualized extending in the T9/T10 disc space. Cirrhotic liver morphology and indeterminate 8.8 cm mass in the right hepatic lobe. Multiple indeterminate subcentimeter pulmonary nodules measuring up to 5 mm. Calcium mildly elevated 10.3. Bilirubin, LFTs and lipase WNL. -PSA, AFP and bone scan has been ordered by admitting team. -Will obtain CT AP to further evaluate -IR consult placed for liver biopsy. However, pt is on aspirin, plavix and eliquis, and typically biopsy will have to be held for 5 days s/p aspirin/plavix per IR recommendations. Would expect discharge prior to this, so pt can continue on these for now, and this can be scheduled outpt if discharge is planned prior to this. Will need to speak to cardiology regarding holding meds for biopsy T10 fracture: -Fracture noted on CT chest -Ortho consulted -MRI thoracic spine ordered
--- NOTE | 2024-09-07 02:06 | PN ---
PROGRESS NOTE DATE OF SERVICE: 09/06/2024 CHIEF COMPLAINT: Back pain, hepatic mass. HISTORY OF PRESENT ILLNESS: This gentleman is doing well. He feels well. He has had no significant problems. He is waiting to be seen by Orthopedics for the compression fracture and Oncology for the mass in the liver. PHYSICAL EXAMINATION: Chest is clear. Cardiac exam is normal. Abdomen is soft, nontender. IMPRESSION: 1. Compression fracture of the dorsal spine. 2. Liver mass. 3. Possible pulmonary nodules. 4. History of coronary artery disease and atherosclerotic cardiovascular disease. 5. Type 2 diabetes. PLAN: 1. Draw PSA and alpha fetoprotein. 2. Bone scan. 3. Discussed with the patient various possibilities regarding possible diagnoses and management. MMODL / IJN: [id number] /
[2024-09-07] MEDS: KETOROLAC 15 MG/ML 1 ML VIAL IVP PRN (16:00)
--- NOTE | 2024-09-08 10:58 | P.PN ---
Subjective Progress Note Date: 09/08/24 This is a 79-year-old male who is being followed by orthopedics for back pain. Patient is seen and evaluated at bedside today and states that he continues to have some pain in his back, but it is tolerable and well-controlled. Patient states that he has been able to ambulate without any difficulty. Patient denies any new complaints today. The patient is seen and examined. I agree with the above dictation. The bone scan has been completed and it shows positive uptake at the lower thoracic and lower lumbar spine. The MRI is still pending. The patient has been comfortable but with the changes on the bone scan I think that a brace could help protect his spine. We will order a high chairback LSO for him that he should wear when he is out of bed. The MRI is still pending and we will have further recommendations to follow. It is okay for the patient to mobilize gently and to have bathroom privileges without the brace. Objective - Vital Signs Vital signs: Vital Signs Temp 98.0 F 09/08/24 07:09 Pulse 62 09/08/24 07:09 Resp 16 09/08/24 07:09 BP 127/77 09/08/24 07:09 Pulse Ox 98 09/08/24 07:09 FiO2 Intake & Output 09/07/24 09/08/24 09/08/24 18:59 06:59 18:59 Intake Total 2520 Balance 2520 Intake: Oral 2520 Other: Voiding Method Toilet # Voids 5 3 # Bowel Movements 1 - Exam On exam patient is in no acute distress. Patient is alert and oriented 3. There is no tenderness to palpation over the thoracic or lumbar midlines. There is no step-off or deformity. No swelling or erythema. Patient is sitting up in a chair without pain or difficulty. Patient moves bilateral upper and lower extremities freely. Sensation intact to bilateral upper and lower extremities. Calves are soft and nontender to palpation. Neurovascular status and circulatory status are intact. - Labs CBC & Chem 7: 09/06/24 10:57 09/06/24 10:57 Assessment and Plan (1) Compression fracture of T10 vertebra Current Visit: Yes Status: Acute Priority: High Code(s): S22.070A - [place]ED[place] COMPRESSION FRACTURE OF T9-T10 VERTEBRA, INIT SNOMED Code(s): 550227931 Plan: 1. Patient is scheduled for an MRI later today. 2. Continue pain control. Patient may mobilize as tolerated. 3. Further recommendations pending MRI results.
--- NOTE | 2024-09-08 12:52 | NM ---
EXAMINATION TYPE: NM bone scan whole body DATE OF EXAM: 09/08/2024 COMPARISON: CT abdomen pelvis 09/06/2024 CLINICAL INDICATION: Male, 79 years old with history of compression frx D-spine; thoracic and lumbar pain for 2 months. 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 No history of prior joint replac ement or fractures. Technique: Delayed whole-body scanning was performed following the injection of 23.8 mCi Tc 99m MDP. Images acquired 3 hours post injection. FINDINGS: Focal intense activity involving the T10 vertebral body. Additional intense activity mid to lower lum bar spine. Degenerative tracer activity bilateral sternoclavicular joints, scattered along the posterior element s of the cervical, thoracic, and lumbar spine, bilateral shoulders, wrist, and base of the thumbs. Suspect some additional degenerative tracer activity at the bilateral costochondral junctions. Intens e activity medial left forearm soft tissues likely relates to the injection site. IMPRESSION: 1. Intense activity at T10 compatible with patient's known vertebral body fracture. 2. Intense activity mid to lower lumbar spine corresponds to the severe degenerative disc disease on patient's CT. 3. Additional scattered degenerative activity throughout the posterior elements of the spine. 4. Degenerative tracer activity also involving both shoulders, sternoclavicular joints, wrist and bas e of the thumbs, and multiple costochondral junctions. [facility], , 09/08/2024 12:50 PM
[2024-09-08 13:02] VITALS: BP 149/71; PULSE 69; TEMP 98.1
--- NOTE | 2024-09-08 13:06 | MR ---
EXAMINATION TYPE: MR thoracic spine wo con DATE OF EXAM: 09/08/2024 12:37 PM COMPARISON: CT. CLINICAL INDICATION: Male, 79 years old with history of T10 compression fracture; PHH, Acute left fla nk pain, T10 compression fx. TECHNIQUE: Multi planar, multi sequence imaging was performed utilizing: T1-weighted, short-tau inver nicky recovery and T2-weighted of the thoracic spine. IV Contrast: mL (None, if empty) FINDINGS: Alignment: Alignment is within normal limits. Vertebral bodies have preserved heights. Spinal cord: Spinal cord is within normal limits for signal. Discs: Intervertebral disc signal is maintained. No evidence of significant spinal canal or neural fo raminal stenosis. There is no evidence of extradural defects or central spinal canal narrowing at any thoracic vertebral body level Osseous structures: Low T1 signal throughout the T10 vertebral body. There is low T1 signal in the T9 vertebral body measuring 7 mm. No significant retropulsion. Inferior endplate Schmorl's node at T10. Mild osteophyte formation and facet joint arthropathy. Scattered disc space narrowing. IMPRESSION: 1. Bony edema throughout the T10 vertebral body. Fracture line extending up to the T9-T10 disc space remains present. No significant retropulsion, spinal canal or neural foraminal stenosis.. 2. Indeterminate T9 vertebral body lesion measuring 7 mm possibly metastatic disease given hepatic m ass. 3. No evidence for significant spinal canal neural foraminal stenosis. [facility], , 09/08/2024 1:04 PM
--- NOTE | 2024-09-08 16:15 | P.PN ---
Progress Note - Text Progress Note Date: 09/08/24 Patient was off the unit for NM bone scan and spine MRI per Orthopedic spine Surgeon. Spoke with family at the bedside briefly. Let them know that we received a message from Interventional Radiology that they will not be able to perform the liver biopsy, it is felt to be in an area that is not assessable. We are contacting other facilities for review of the imaging to see who can biopsy the mass. We will contact the patient and his family once we have an appointment. Family at the bedside did agree with the plan and verbalized understanding. Physician requested CEA and CA 19-9 proteins be ordered on the peripheral blood, this has been done. From a Oncology standpoint, patient is okay to be discharged once he has been cleared by Attending and any other consulting Physicians.
[2024-09-08] MEDS ORDERED: ENOXAPARIN 80 MG/0.8 ML SYRINGE SQ SCH (16:30)
[2024-09-08 22:24] LABS: Carcinoembryonic Antigen 3.7 ng/mL (0.0-4.9)
[2024-09-08 22:34] LABS: Cancer Antigen 19-9 <4.0 U/mL (0.0-34.9)
--- NOTE | 2024-09-08 23:03 | DS ---
DISCHARGE SUMMARY CHIEF COMPLAINT: Back pain, intractable. HISTORY OF PRESENT ILLNESS AND PHYSICAL EXAMINATION: Details of this man's history and physical can be found in the initial workup. LABORATORY STUDIES: While he is in the hospital, he had laboratory studies, details of which can be found in the laboratory section of his chart. COURSE IN THE HOSPITAL: After admission, he was placed on bedrest, started on intravenous fluids and started on workup for dorsal spine compression fracture as well as a mass in the liver. He was seen by Orthopedics and Oncology. Orthopedics ordered MRI. A bone scan was also ordered, which have basically revealed arthritis and compression fracture. MRI failed to demonstrate any definite pathology in the dorsal spine. Oncology saw him for the liver mass and suggested that he will require biopsy, but he will have to be off anticoagulants for 5 or 6 days first. After his workup was complete, it was felt that he could be discharged and go home on light activity about the house and regular diet and activity without lifting and he will be sent home on Lovenox 80 mg once a day instead of his Eliquis, Plavix and aspirin with hopes that the lesion in the liver can be biopsied in 5 or 6 days. FINAL DIAGNOSES: 1. Intractable back pain. 2. Dorsal spine compression fracture. 3. Right liver lobe mass. 4. Type 2 diabetes. 5. Coronary artery disease. OPERATIONS: None. CONSULTATIONS: Oncology and Orthopedics. He is improved. MMODL / IJN: [id number] /
--- NOTE | 2024-09-08 23:33 | PN ---
PROGRESS NOTE DATE OF SERVICE: 09/07/2024 CHIEF COMPLAINT: Back pain and liver mass. HISTORY OF PRESENT ILLNESS: This gentleman doing fairly well except for his back pain. He is scheduled for an MRI of the spine tomorrow as well as a bone scan. PHYSICAL EXAMINATION: CHEST: Clear. CARDIAC: Unremarkable except for atrial fibrillation. ABDOMEN: Soft, nontender. IMPRESSION: 1. Compression fracture of the dorsal spine. 2. Liver mass. 3. Diabetes. 4. Coronary artery disease. PLAN: Await for studies tomorrow and probably discharge. Will likely send him home on Lovenox without his aspirin, Plavix and Eliquis, so he can undergo a liver biopsy later the week. MMODL / IJN: [id number] /
[2024-09-09] MEDS ORDERED: ENOXAPARIN 80 MG/0.8 ML SYRINGE SQ SCH (09:00)
== END 2024-09-08 16:54 | disposition home or self-care (01) | DRG 552 ==
LOC: EC 13:33 → 5NMEDONC 19:00
PROVIDERS: ADMIT Family Medicine; ATTEND Family Medicine
DX: S22.079A Unspecified fracture of T9-T10 vertebra, initial encounter for closed fracture (principal); R16.0 Hepatomegaly, not elsewhere classified; K74.60 Unspecified cirrhosis of liver; E11.9 Type 2 diabetes mellitus without complications; M47.816 Spondylosis without myelopathy or radiculopathy, lumbar region; I25.10 Atherosclerotic heart disease of native coronary artery without angina pectoris; R91.8 Other nonspecific abnormal finding of lung field; Z87.891 Personal history of nicotine dependence; Z95.1 Presence of aortocoronary bypass graft; I25.2 Old myocardial infarction; Z79.01 Long term (current) use of anticoagulants; Z79.84 Long term (current) use of oral hypoglycemic drugs; Z79.899 Other long term (current) drug therapy; Z79.82 Long term (current) use of aspirin
CPT/HCPCS: 36415; 71260; 72146; 74177; 78306; 80048; 80053; 82105; 82378; 83690; 83735; 83880; 84484; 85025; 85610; 85730; 86301; 93005; 96374; 99285

== ENCOUNTER 2024-11-10 17:30 | Emergency (ER) | payer MEDICARE ==
[2024-11-10 17:40] VITALS: BP 157/76; PULSE 77; RESP 18; TEMP 97.8
[2024-11-10 17:40] LABS: Glucose,Whole Blood 479 mg/dL (70-110)
--- NOTE | 2024-11-10 19:32 | ED ---
Recheck HPI - General Source: patient, RN notes reviewed Mode of arrival: ambulatory Limitations: no limitations <Raymond Padilla - Last Filed: 11/10/24 19:31> <Gurjit Webster - Last Filed: 11/20/24 21:52> - General Chief Complaint: Recheck/Abnormal Lab/Rx Stated Complaint: Hyperglycemia Time Seen by Provider: 11/10/24 17:48 - History of Present Illness Initial Comments: Quick note: This is a 79-year-old male with history including DM, stage IV CVA, AMI and CAD presenting with for elevated blood sugar. Patient states he has not been monitoring his blood sugar since his cancer diagnosis. States he was recently placed on new cancer medication including an increase in steroids which he suspects is caused his elevated blood sugar. Patient states he has an appointment with Dr. Dawn on Sunday. Otherwise denies headache, dizziness, abdominal pain, nausea/vomiting, altered mental status. (Raymond Padilla) - Related Data Home Medications Medication Instructions Recorded Confirmed Colesevelam [Welchol] 1,875 mg PO BID 11/01/14 11/17/24 Glimepiride [Amaryl] 4 mg PO BID 11/01/14 11/17/24 Metoprolol Tartrate 25 mg PO DAILY 11/01/14 11/17/24 Ranolazine [Ranexa] 1,000 mg PO BID 11/01/14 11/17/24 gemfibroziL [Lopid] 600 mg PO BID 11/01/14 11/17/24 Empagliflozin [Jardiance] 25 mg PO DAILY 11/20/22 11/17/24 Latanoprost [Latanoprost 0.005%] 1 drop BOTH EYES HS 11/20/22 11/17/24 Nitroglycerin Sl Tabs [Nitrostat] 0.4 mg SUBLINGUAL Q5M PRN 11/20/22 11/17/24 bisacodyL [Dulcolax] 5 mg PO BID 11/20/22 11/17/24 lisinopriL [Zestril] 5 mg PO MOWEFR 11/20/22 11/17/24 metFORMIN HCL [Glucophage] 850 mg PO BID 11/20/22 11/17/24 Apixaban [Eliquis] 5 mg PO BID 11/17/24 11/17/24 Clopidogrel [Plavix] 75 mg PO DAILY 11/17/24 11/17/24 HYDROcodone/APAP 10-325MG [[place] 1 tab PO Q6HR PRN 11/17/24 11/17/24 10-325] Ibuprofen [Motrin Ib] 600 mg PO TID 11/17/24 11/17/24 dexAMETHasone 4 mg PO BID 11/17/24 11/17/24 Allergies Allergy/AdvReac Type Severity Reaction Status Date / Time amoxicillin Allergy Unknown Verified 11/17/24 13:31 ampicillin Allergy Unknown Verified 11/17/24 13:31 cortisone Allergy Unknown Verified 11/17/24 13:31 erythromycin base Allergy Unknown Verified 11/17/24 13:31 Penicillins Allergy Unknown Verified 11/17/24 13:31 prednisone Allergy Unknown Verified 11/17/24 13:31 Review of Systems ROS Other: All systems not noted in ROS Statement are negative. <Raymond Padilla - Last Filed: 11/10/24 19:31> ROS Other: All systems not noted in ROS Statement are negative. <Gurjit Webster - Last Filed: 11/20/24 21:52> ROS Statement: Those systems with pertinent positive or pertinent negative responses have been documented in the HPI. Past Medical History Past Medical History: Coronary Artery Disease (CAD), Cancer, Chest Pain / Angina, Diabetes Mellitus, Hyperlipidemia, Hypertension, Myocardial Infarction (MA) Additional Past Medical History / Comment(s): stage 4 cancer Last Myocardial Infarction Date:: 1998 History of Any Multi-Drug Resistant Organisms: None Reported Past Surgical History: Coronary Bypass/CABG, Heart Catheterization, Heart Catheterization With Stent Date of Last Stent Placement:: 1998 Past Psychological History: No Psychological Hx Reported Smoking Status: Never smoker Past Alcohol Use History: Occasional Past Drug Use History: None Reported <Raymond Padilla - Last Filed: 11/10/24 19:31> General Exam Limitations: no limitations <Raymond Padilla - Last Filed: 11/10/24 19:31> - General Exam Comments Initial Comments: Visual Physical Exam Vital signs reviewed General: Well-appearing, nontoxic, no acute distress. Head: Normocephalic, atraumatic Eyes: PERRLA, EOMI ENT: Airway patent Chest: Nonlabored breathing Skin: No visual rash, normal skin tone Neuro: Alert and oriented 3 Musculoskeletal: No gross abnormalities (Raymond Padilla) Course Vital Signs 11/10/24 17:34 Temperature 97.8 F Pulse Rate 77 Respiratory 18 Rate Blood Pressure 157/76 O2 Sat by Pulse 99 Oximetry Medical Decision Making <Raymond Padilla - Last Filed: 11/10/24 19:31> <Gurjit Webster - Last Filed: 11/20/24 21:52> - Medical Decision Making I completed the quick note portion of this chart signed NORBERTO Stover (Raymond Padilla) No attestation required (Gurjit Webster) - Lab Data Lab Results 11/10/24 Range/Units 17:39 POC Glucose (mg/dL) 479 H (70-110) mg/dL POC Glu Wilderness Guide ID Serjio Kothari Disposition <Raymond Padilla - Last Filed: 11/10/24 19:31> <Gurjit Webster - Last Filed: 11/20/24 21:52> Clinical Impression: Hyperglycemia Disposition: LEFT AGAINST MEDICAL ADVICE Referrals: Nolan Dawn MD [Primary Care Provider] - 1-2 days
== END 2024-11-10 21:26 | disposition left against medical advice (07) ==
LOC: EC 17:30
DX: E11.65 Type 2 diabetes mellitus with hyperglycemia (principal); Z88.0 Allergy status to penicillin; Z88.1 Allergy status to other antibiotic agents; Z88.8 Allergy status to other drugs, medicaments and biological substances; Z53.29 Procedure and treatment not carried out because of patient's decision for other reasons
CPT/HCPCS: 36415; 99284

== ENCOUNTER 2024-11-17 11:46 | Inpatient (IN) | payer MEDICARE ==
[2024-11-17 12:46] LABS: Basophils # (A) 0.05 10*3/uL (0.00-0.10); Basophils % (A) 0.3 %; Eosinophils # (A) 0.06 10*3/uL (0.04-0.35); Eosinophils % (A) 0.4 %; HCT 40.7 % (39.6-50.0); HGB 13.2 g/dL (13.0-17.0); Lymphocytes # (A) 0.70 10*3/uL (0.90-5.00); Lymphocytes % (A) 4.2 %; MCH 27.5 pg (27.0-32.0); MCHC 32.4 g/dL (32.0-37.0); MCV 84.8 fL (80.0-97.0); Monocytes # (A) 1.16 10*3/uL (0.20-1.00); Monocytes % (A) 6.9 %; Neutrophils # (A) 14.51 10*3/uL (1.80-7.70); Neutrophils % (A) 86.5 %; Platelet Count 378 10*3/uL (140-440); RBC 4.80 10*6/uL (4.40-5.60); RDW 13.7 % (11.5-14.5); WBC 16.77 10*3/uL (4.50-10.00)
[2024-11-17 12:48] LABS: Bilirubin,Urine Negative (Negative); Color,Urine Colorless; Glucose,Urine (UA) 4+ (Negative); Ketones,Urine 1+ (Negative); PH, Urine 5.0 (5.0-8.0); Protein,Urine Negative (Negative); Specific Gravity,Urine 1.031 (1.001-1.035)
[2024-11-17 12:49] LABS: Blood,Urine Negative (Negative); Leukocyte Esterase,Urine Negative (Negative); Nitrite,Urine Negative (Negative); Urobilinogen,Urine <2.0 mg/dL (<2.0)
[2024-11-17 12:58] LABS: ALT 15 U/L (4-49); AST 19 U/L (17-59); Acetaminophen <10.0 ug/mL; African American GFR (CKD) >90 (>60 ml/min/1.73 sqM); Albumin 3.8 g/dL (3.5-5.0); Alkaline Phosphatase 132 U/L (38-126); Anion Gap 14 mmol/L; Blood Urea Nitrogen 35 mg/dL (9-20); Calcium 10.2 mg/dL (8.4-10.2); Carbon Dioxide 23 mmol/L (22-30); Chloride 96 mmol/L (98-107); Glucose 377 mg/dL (74-99); Non-African American GFR(CKD) 88 (>60 ml/min/1.73 sqM); Potassium 4.8 mmol/L (3.5-5.1); Salicylate <1.0 mg/dL; Sodium 133 mmol/L (137-145); Total Protein 6.3 g/dL (6.3-8.2)
[2024-11-17 13:02] LABS: Barbiturate Screen,Urine Not Detected (NotDetected); Benzodiazepines Screen,Urine Not Detected (NotDetected); Opiate Screen,Urine Detected (NotDetected); Oxycodone Screen, Urine Detected (NotDetected); Phencyclidine Screen,Urine Not Detected (NotDetected); Tricyclic Antidepressant,Urine Not Detected (NotDetected); Urn Cannabinoid Scrn Not Detected (NotDetected)
[2024-11-17] MEDS: SODIUM CHLORIDE 0.9% 500 ML 500 ML IV STA (13:02)
[2024-11-17 14:07] LABS: INR 0.9 (<1.2); Partial Thromboplastin Time 20.7 sec (22.0-30.0); Prothrombin Time 10.4 sec (10.0-12.5)
[2024-11-17] MEDS: ACETYLCYSTEINE 6,000 MG/30 ML VIAL PO ONE (14:08)
[2024-11-17] MEDS: SODIUM CHLORIDE 0.9% 1,000 ML IV ONE (14:20)
[2024-11-17] MEDS: SODIUM CHLORIDE 0.9% 500 ML 500 ML IV ONE (14:20)
[2024-11-17] MEDS ORDERED: ONDANSETRON 4 MG/2 ML VIAL IVP PRN (14:39)
[2024-11-17] MEDS ORDERED: NALOXONE 0.4 MG/ML 1 ML VIAL IV PRN (14:39)
--- NOTE | 2024-11-17 15:36 | ED ---
General Adult HPI - General Chief complaint: Overdose Stated complaint: Overdose Time Seen by Provider: 11/17/24 12:00 Source: patient, RN notes reviewed, old records reviewed Mode of arrival: EMS Limitations: no limitations - History of Present Illness Initial comments: 79-year-old male presents emergency department complaining of overdose. States he took an unknown number of his pain tablets at home last night. States he was taking a few every hour or so. Patient is currently on hospice for cancer. Patient also has a history of diabetes, hypertension, hyperlipidemia, CAD with cardiac stents. States he took all these tablets with the intention of dying. Is unknown how many he took. States he took the pain pills prescribed to him by Dr. Dawn. He did have a bottle of [place] 5 tablets with him. He states he took anywhere from half a bottle to a bottle and a half however only 1 empty bottle was found and this was from over a month ago. If he took them as prescribed they would have run out as well. Unknown if he definitively took these medications. He is currently alert and oriented. No focal deficits. No acute complaints. States he is having thoughts of wanting hurt himself, stating that he does not want to just "exist" which she is currently doing on hospice. He is supposed to be living if he is alive and he is not living he states. - Related Data Home Medications Medication Instructions Recorded Confirmed Colesevelam [Welchol] 1,875 mg PO BID 11/01/14 11/17/24 Glimepiride [Amaryl] 4 mg PO BID 11/01/14 11/17/24 Metoprolol Tartrate 25 mg PO DAILY 11/01/14 11/17/24 Ranolazine [Ranexa] 1,000 mg PO BID 11/01/14 11/17/24 gemfibroziL [Lopid] 600 mg PO BID 11/01/14 11/17/24 Empagliflozin [Jardiance] 25 mg PO DAILY 11/20/22 11/17/24 Latanoprost [Latanoprost 0.005%] 1 drop BOTH EYES HS 11/20/22 11/17/24 Nitroglycerin Sl Tabs [Nitrostat] 0.4 mg SUBLINGUAL Q5M PRN 11/20/22 11/17/24 bisacodyL [Dulcolax] 5 mg PO BID 11/20/22 11/17/24 lisinopriL [Zestril] 5 mg PO MOWEFR 11/20/22 11/17/24 metFORMIN HCL [Glucophage] 850 mg PO BID 11/20/22 11/17/24 Apixaban [Eliquis] 5 mg PO BID 11/17/24 11/17/24 Clopidogrel [Plavix] 75 mg PO DAILY 11/17/24 11/17/24 HYDROcodone/APAP 10-325MG [[place] 1 tab PO Q6HR PRN 11/17/24 11/17/24 10-325] Ibuprofen [Motrin Ib] 600 mg PO TID 11/17/24 11/17/24 dexAMETHasone 4 mg PO BID 11/17/24 11/17/24 Allergies Allergy/AdvReac Type Severity Reaction Status Date / Time amoxicillin Allergy Unknown Verified 11/17/24 13:31 ampicillin Allergy Unknown Verified 11/17/24 13:31 cortisone Allergy Unknown Verified 11/17/24 13:31 erythromycin base Allergy Unknown Verified 11/17/24 13:31 Penicillins Allergy Unknown Verified 11/17/24 13:31 prednisone Allergy Unknown Verified 11/17/24 13:31 Review of Systems ROS Statement: Those systems with pertinent positive or pertinent negative responses have been documented in the HPI. Review of Systems: CONST: Denies fever EYES: Denies blurry vision ENT: Denies nasal congestion C/V: Denies Chest pain RESP: Denies shortness of breath GI: Denies abdominal pain : Denies dysuria SKIN: Denies rash. MSK: Denies joint pain. NEURO: Denies headache ROS Other: All systems not noted in ROS Statement are negative. Past Medical History Past Medical History: Coronary Artery Disease (CAD), Cancer, Chest Pain / Angina, Diabetes Mellitus, Hyperlipidemia, Hypertension, Myocardial Infarction ( [place]) Additional Past Medical History / Comment(s): stage 4 cancer Last Myocardial Infarction Date:: 1998 History of Any Multi-Drug Resistant Organisms: None Reported Past Surgical History: Coronary Bypass/CABG, Heart Catheterization, Heart Catheterization With Stent Date of Last Stent Placement:: 1998 Past Psychological History: No Psychological Hx Reported Smoking Status: Never smoker Past Alcohol Use History: Occasional Past Drug Use History: None Reported General Exam - General Exam Comments Initial Comments: General: Appears in no acute distress. HEAD: Normal with no signs of head trauma. EYES: PERRLA, EOMI, conjunctiva normal, no discharge. Pupils are 2 to 3 mm and equal bilaterally. ENT: Hearing grossly intact, normal oropharynx. RESPIRATORY: Clear breath sounds bilaterally. No wheezes, rales, or rhonchi. No respiratory distress. C/V: Regular rate and rhythm. S1 and S2 auscultated, no edema, peripheral pulses 2+ and intact throughout ABD: Abd is soft, nontender, nondistended EXT: Normal range of motion, no obvious deformity SKIN: No rashes or lesions observed on exposed skin. NEURO: Alert and oriented x 4. Cranial nerves II-XII intact. No focal sensory or strength deficits. Limitations: no limitations Course Vital Signs 11/17/24 11/17/24 11/17/24 12:03 12:51 13:48 Temperature 97.4 F L Pulse Rate 101 H 92 89 Respiratory 18 18 18 Rate Blood Pressure 138/84 130/77 128/77 O2 Sat by Pulse 100 96 94 L Oximetry 11/17/24 11/17/24 11/17/24 14:21 16:00 17:00 Temperature Pulse Rate 89 84 80 Respiratory 18 18 18 Rate Blood Pressure 128/60 140/81 140/70 O2 Sat by Pulse 97 97 99 Oximetry 11/17/24 11/17/24 11/17/24 18:00 19:00 22:22 Temperature Pulse Rate 80 86 90 Respiratory 18 18 18 Rate Blood Pressure 133/66 142/86 133/70 O2 Sat by Pulse 98 98 96 Oximetry Procedures - [place] Protocol (Time Out) Nurse: Margarito Odom Medical Decision Making - Medical Decision Making Was pt. sent in by a medical professional or institution (, [facility], [facility], urgent care, hospital, or [facility]...) When possible be specific @ -No Did you speak to anyone other than the patient for history (EMS, parent, family, police, friend...)? What history was obtained from this source @ -Spoke with EMS who provided number of pills suspected to be taken at home however their inability to find evidence that patient took any tablets. I spoke with family who is concerned with the patient being at home as he lives at home alone. Did you review nursing and triage notes (agree or disagree)? Why? @ -I reviewed and agree with nursing and triage notes Were old charts reviewed (outside hosp., previous admission, EMS record, old EKG, old radiological studies, urgent care reports/EKG's, [facility] records)? Report findings @ -Today's EKG compared with EKG from August 2024 confirming history of left bundle branch block. No significant acute change. Differential Diagnosis (chest pain, altered mental status, abdominal pain women, abdominal pain men, vaginal bleeding, weakness, fever, dyspnea, syncope, headache, dizziness, GI bleed, back pain, seizure, CVA, palpatations, mental health, musculoskeletal)? @ -Overdose, opiate overdose, weakness, dehydration, chronic pain, suicidal, depression, this list is not all-inclusive. EKG interpreted by me (3pts min.). @ -As above X-rays interpreted by me (1pt min.). @ -Chest x-ray reveals no obvious acute process. CT interpreted by me (1pt min.). @ -None done U/S interpreted by me (1pt. min.). @ -None done What testing was considered but not performed or refused? (CT, X-rays, U/S, labs)? Why? @ -None What meds were considered but not given or refused? Why? @ -None Did you discuss the management of the patient with other professionals (professionals i.e. , PA, [facility], lab, RT, psych nurse, farmworker diversified crops, strategic alliances manager, teacher, aboriginal home school liaison officer, showcase maker)? Give summary @ -Discussed with hospice nurses, Anny Matos. They inform me that has this is not directly related to his hospice diagnosis, patient can be admitted and treated either psychiatrically or medically at this time. They will follow along as consultants. Spoke with poison control through nursing staff, and initially based on the story we told them they recommended initiation of NAC. However just prior to administering it, Tylenol level did return and was negative. They were recontacted and they recommended psychiatric evaluation but in terms of medical management said that a second Tylenol level can be obtained at the 4-hour point but otherwise NAC can be held at this time. Discussed with Dr. Dawn who accepted the admission. Was smoking cessation discussed for >3mins.? @ -No Was critical care preformed (if so, how long)? @ -Yes, 33 minutes. Were there social determinants of health that impacted care today? How? (Homelessness, low income, unemployed, alcoholism, drug addiction, transportation, low edu. Level, literacy, decrease access to med. care, correction, rehab)? @ -No Was there de-escalation of care discussed even if they declined (Discuss DNR or withdrawal of care, Hospice)? DNR status @ -No What co-morbidities impacted this encounter? (DM, HTN, Smoking, COPD, CAD, Cancer, CVA, ARF, Chemo, Hep., AIDS, mental health diagnosis, sleep apnea, morbid obesity)? @ -Cancer, currently on hospice Was patient admitted / discharged? Hospital course, mention meds given and route, prescriptions, significant lab abnormalities, going to OR and other pertinent info. @ -Patient presents emergency department complaining of overdose. States he took an unknown number of pain tablets suspected being [place] 5 tablets sometime last night. States that over the course of a few hours he was taking a few at a time. Then he fell asleep and woke up this morning. It was then that hospice as well as family became aware of his intention to kill himself and he was brought here for further evaluation. Unknown exactly what time last night tablets were taken however they were last night patient slept the whole night. Presents for further evaluation at this time. Vitals within acceptable limits. No significant acute complaints at this time. Will obtain overdose workup. NAC was not initiated by myself as I am uncertain if he actually took the medication. Based on the pill bottles we were able to obtain from patient's house and with EMS, with counting the remaining number of pills and the fill dates on the other bottles, does not appear that he took the tablets but uncertain at this time. There is also uncertainty regarding how ma ny he took and exactly which medication he took. Poison control was contacted and they did recommend initiation of NAC therapy. Workup was already started and labs pending at this time. NAC was ordered. EKG shows no signs of acute ischemia. Laboratory studies remarkable for leukocytosis of 16 which is likely secondary to his cancer but also from the steroids that he has been on. Laboratory studies otherwise remarkable for mild lactic acidosis of 5.5 which is likely secondary to dehydration. The remainder the workup is unremarkable including normal LFTs, as well as undetectable Tylenol level. NAC had not yet been initiated and we did contact poison control now that we do of a Tylenol level back. This is past the 4-hour point of when he would have taken any of his overdose medications. They recommended holding the NAC for now and we can repeat a Tylenol level in 4 hours. Otherwise patient is cleared from their standpoint in terms of overdose. Recommended supportive care and m onitoring. I updated the patient and family. He has not been eating or drinking as much lately and I do suspect that lactic acid is likely a combination from his cancer, as well as dehydration. I do not believe it is elevated secondary to infection at this time. I do not believe that the patient's leukocytosis is elevated from infection at this time as he has been on steroid therapy for the last 1 to 2 weeks for pain control. This is likely elevated from pain. We will continue with IV fluid hydration and repeat lactic acid. 4-hour Tylenol level will also be obtained. Due to the concern for dehydration, patient will be admitted to medicine under Dr. Dawn with consult placed to psychiatry. We will continue with suicidal precautions as well as sitter. I spoke with hospice nurses who confirmed that patient can remain on hospice and they will follow along while patient is in the hospital. He is being admitted for a reason not related to his hospice care. I updated the patient and family and they were in agreement with the above plan. Patient will be admitted to medicine. Undiagnosed new problem with uncertain prognosis? @ -No Drug Therapy requiring intensive monitoring for toxicity (Heparin, Nitro, Insulin, Cardizem)? @ -No Were any procedures done? @ -No Diagnosis/symptom? @ -Suicidal ideation with a plan and possible attempt, malignancy, on hospice care, dehydration Acute, or Chronic, or Acute on Chronic? @ -Acute Uncomplicated (without systemic symptoms) or Complicated (systemic symptoms)? @ -Complicated Side effects of treatment? @ -No Exacerbation, Progression, or Severe Exacerbation? @ -No Poses a threat to life or bodily function? How? (Chest pain, [place], [place], pneumonia, PE, COPD, DKA, ARF, appy, cholecystitis, CVA, Diverticulitis, Homicidal, Suic idal, threat to staff... and all critical care pts) @ -Yes Patient was admitted on 11/17/2024. When I arrived on 11/18/2024 in the morning, it does not appear that Dr. Dawn answered any pages for admission for this patient. Was given to the [employer] doc to discuss the admission with Dr. Nestor boucher. This never occurred. Does not appear that the patient was seen by Dr. Dawn since yesterday. No orders have been placed by Dr. Dawn in the chart. I contacted Dr. Macdonald, head of the family medicine practitioners, at approximately 1440 on 11/18/2024 as I was unable to contact Dr. Dawn today for additional patient admissions. As I have not yet received a response over the last 2 days, I did adjust care for Mr. Meneses to Dr. Macdonald who will assume care until Dr. Dawn can be notified. - Lab Data Result diagrams: 11/18/24 04:56 11/18/24 04:56 Lab Results 11/17/24 11/17/24 11/17/24 Range/Units 12:15 12:15 12:15 WBC 16.77 H (4.50-10.00) 10*3/uL RBC 4.80 (4.40-5.60) 10*6/uL Hgb 13.2 (13.0-17.0) g/dL Hct 40.7 (39.6-50.0) % MCV 84.8 (80.0-97.0) fL MCH 27.5 (27.0-32.0) pg MCHC 32.4 (32.0-37.0) g/dL Plt Count 378 (140-440) 10*3/uL MPV 8.5 L (9.5-12.2) fL Immature Gran % (Auto) 1.7 % Neutrophils % 86.5 % Lymphocytes % 4.2 % Monocytes % 6.9 % Eosinophils % 0.4 % Basophils % 0.3 % Immature Gran # 0.29 H (0.00-0.04) 10*3/uL Neutrophils # 14.51 H (1.80-7.70) 10*3/uL Lymphocytes # 0.70 L (0.90-5.00) 10*3/uL Monocytes # 1.16 H (0.20-1.00) 10*3/uL Eosinophils # 0.06 (0.04-0.35) 10*3/uL Basophils # 0.05 (0.00-0.10) 10*3/uL PT (10.0-12.5) sec INR (<1.2) APTT (22.0-30.0) sec Sodium 133 L (137-145) mmol/L Potassium 4.8 (3.5-5.1) mmol/L Chloride 96 L (98-107) mmol/L Carbon Dioxide 23 (22-30) mmol/L Anion Gap 14 mmol/L BUN 35 H (9-20) mg/dL Creatinine 0.73 (0.66-1.25) mg/dL Est GFR (CKD-EPI)AfAm >90 (>60 ml/min/1.73 sqM) Est GFR (CKD-EPI)NonAf 88 (>60 ml/min/1.73 sqM) Glucose 377 H (74-99) mg/dL Lactic Ac Sepsis Rflx Plasma Lactic Acid Logan (0.7-2.0) mmol/L Calcium 10.2 (8.4-10.2) mg/dL Total Bilirubin 0.5 (0.2-1.3) mg/dL AST 19 (17-59) U/L ALT 15 (4-49) U/L Alkaline Phosphatase 132 H (38-126) U/L Total Protein 6.3 (6.3-8.2) g/dL Albumin 3.8 (3.5-5.0) g/dL Urine Color Colorless Urine Appearance Clear (Clear) Urine pH 5.0 (5.0-8.0) Ur Specific [place] 1.031 (1.001-1.035) Urine Protein Negative (Negative) Urine Glucose (UA) 4+ H (Negative) Urine Ketones 1+ H (Negative) Urine Blood Negative (Negative) Urine Nitrite Negative (Negative) Urine Bilirubin Negative (Negative) Urine Urobilinogen <2.0 (<2.0) mg/dL Ur Leukocyte Esterase Negative (Negative) Salicylates <1.0 mg/dL Urine Opiates Screen Detected H (NotDetected) Ur Oxycodone Screen Detected H (NotDetected) Urine Methadone Screen Not Detected (NotDetected) Acetaminophen <10.0 ug/mL Ur Barbiturates Screen Not Detected (NotDetected) U Tricyclic Antidepress Not Detected (NotDetected) Ur Phencyclidine Scrn Not Detected (NotDetected) Ur Amphetamines Screen Not Detected (NotDetected) U Methamphetamines Scrn Not Detected (NotDetected) U Benzodiazepines Scrn Not Detected (NotDetected) Urine Cocaine Screen Not Detected (NotDetected) U Marijuana (THC) Screen Not Detected (NotDetected) Serum Alcohol <10 mg/dL 11/17/24 11/17/24 11/17/24 Range/Units 12:15 13:02 13:44 WBC (4.50-10.00) 10*3/uL RBC (4.40-5.60) 10*6/uL Hgb (13.0-17.0) g/dL Hct (39.6-50.0) % MCV (80.0-97.0) fL MCH (27.0-32.0) pg MCHC (32.0-37.0) g/dL Plt Count (140-440) 10*3/uL MPV (9.5-12.2) fL Immature Gran % (Auto) % Neutrophils % % Lymphocytes % % Monocytes % % Eosinophils % % Basophils % % Immature Gran # (0.00-0.04) 10*3/uL Neutrophils # (1.80-7.70) 10*3/uL Lymphocytes # (0.90-5.00) 10*3/uL Monocytes # (0.20-1.00) 10*3/uL Eosinophils # (0.04-0.35) 10*3/uL Basophils # (0.00-0.10) 10*3/uL PT 10.4 (10.0-12.5) sec INR 0.9 (<1.2) APTT 20.7 L (22.0-30.0) sec Sodium (137-145) mmol/L Potassium (3.5-5.1) mmol/L Chloride (98-107) mmol/L Carbon Dioxide (22-30) mmol/L Anion Gap mmol/L BUN (9-20) mg/dL Creatinine (0.66-1.25) mg/dL Est GFR (CKD-EPI)AfAm (>60 ml/min/1.73 sqM) Est GFR (CKD-EPI)NonAf (>60 ml/min/1.73 sqM) Glucose (74-99) mg/dL Lactic Ac Sepsis Rflx Y Plasma Lactic Acid Logan 5.5 H* (0.7-2.0) mmol/L Calcium (8.4-10.2) mg/dL Total Bilirubin (0.2-1.3) mg/dL AST (17-59) U/L ALT (4-49) U/L Alkaline Phosphatase (38-126) U/L Total Protein (6.3-8.2) g/dL Albumin (3.5-5.0) g/dL Urine Color Urine Appearance (Clear) Urine pH (5.0-8.0) Ur Specific [place] (1.001-1.035) Urine Protein (Negative) Urine Glucose (UA) (Negative) Urine Ketones (Negative) Urine Blood (Negative) Urine Nitrite (Negative) Urine Bilirubin (Negative) Urine Urobilinogen (<2.0) mg/dL Ur Leukocyte Esterase (Negative) Salicylates mg/dL Urine Opiates Screen (NotDetected) Ur Oxycodone Screen (NotDetected) Urine Methadone Screen (NotDetected) Acetaminophen ug/mL Ur Barbiturates Screen (NotDetected) U Tricyclic Antidepress (NotDetected) Ur Phencyclidine Scrn (NotDetected) Ur Amphetamines Screen (NotDetected) U Methamphetamines Scrn (NotDetected) U Benzodiazepines Scrn (NotDetected) Urine Cocaine Screen (NotDetected) U Marijuana (THC) Screen (NotDetected) Serum Alcohol mg/dL - EKG Data -: EKG Interpreted by Me EKG Comments: 12-lead Electrocardiogram Interpretation Note EKG was reviewed and interpreted by myself. 12-lead ECG performed at 1231 is interpreted by me as revealing normal sinus rhythm at a rate of 94 beats per minute. Left axis deviation. NM interval is 131 ms, QRS durations 149 ms, QTc is 424 ms.. Left bundle branch block present which is chronic. There were no ST or T wave abnormalities to suggest myocardial ischemia or injury. R wave progression across the precordium was satisfactory. By my interpretation this EKG is non-diagnostic for acute ischemia. Compared to EKG from August 2024 with no significant acute change. Critical Care Time Critical Care Time: Yes Total Critical Care Time: 33 Disposition Clinical Impression: Suicidal ideations, Suicidal behavior, Dehydration, Hospice care, Lactic acidosis Disposition: ADMITTED IP TO THIS [facility] Condition: Stable Time of Disposition: 14:39
[2024-11-17] MEDS: SODIUM CHLORIDE 0.9% 1,000 ML IV STA (16:03)
--- NOTE | 2024-11-17 16:22 | XR ---
EXAMINATION TYPE: XR chest 1V portable DATE OF EXAM: 11/17/2024 3:45 PM COMPARISON: 07/15/2023 CLINICAL INDICATION: Male, 79 years old with history of overdose, TECHNIQUE: XR chest 1V portable view(s) obtained. FINDINGS: The heart size is normal. The pulmonary vasculature is normal. Some strandiness in the periphery of the right midlung. Small right pleural effusion is present. Sternotomy wires are in the midline. IMPRESSION: 1. Small infiltrates peripheral right mid lung and lower lung field small right pleural effusion. Cor relate for atelectasis or pneumonia. Follow-up recommended. [facility], Workstation: [facility], 11/17/2024 4:20 PM
[2024-11-17] MEDS: IBUPROFEN 400 MG TAB PO PRN (17:57)
[2024-11-17] MEDS ORDERED: ACETYLCYSTEINE 6,000 MG/30 ML VIAL PO SCH (18:00)
[2024-11-17 22:02] LABS: Glucose,Whole Blood 253 mg/dL (70-110)
[2024-11-17] MEDS: LATANOPROST 0.005% OPHTH DROPS 2.5 ML BTL BOTH EYES SCH (22:10)
[2024-11-17] MEDS: MORPHINE SULFATE 4 MG/ML SYRINGE IVP STA (22:12)
[2024-11-18] MEDS: MORPHINE SULFATE 4 MG/ML SYRINGE IV PRN (01:58)
[2024-11-18 07:10] LABS: Glucose,Whole Blood 271 mg/dL (70-110)
[2024-11-18] MEDS: CLOPIDOGREL 75 MG TAB PO SCH (07:38)
[2024-11-18] MEDS: METOPROLOL TARTRATE 25 MG TAB PO SCH (07:38)
[2024-11-18 07:58] LABS: Basophils # (A) 0.02 X 10*3/uL (0.00-0.10); Basophils % (A) 0.2 %; Eosinophils # (A) 0.02 X 10*3/uL (0.04-0.35); Eosinophils % (A) 0.2 %; HCT 33.9 % (39.6-50.0); HGB 10.5 g/dL (13.0-17.0); Immature Grans, Automated 2.50 %; Lymphocytes # (A) 0.30 X 10*3/uL (0.90-5.00); Lymphocytes % (A) 3.3 %; MCH 26.6 pg (27.0-32.0); MCHC 31.0 g/dL (32.0-37.0); MCV 85.8 FL (80.0-97.0); Monocytes # (A) 0.35 X 10*3/uL (0.20-1.00); Monocytes % (A) 3.8 %; NRBC Per 100 WBC 0 X 10*3/uL (0.00-0.01); Neutrophils # (A) 8.31 X 10*3/uL (1.80-7.70); Neutrophils % (A) 90.0 %; Platelet Count 256 X 10*3/uL (140-440); RBC 3.95 X 10*6/uL (4.40-5.60); RDW 13.6 % (11.5-14.5); WBC 9.23 X 10*3/uL (4.50-10.00)
[2024-11-18 08:10] LABS: ALT 10 U/L (10-49); AST 15 U/L (14-35); Albumin 3.1 g/dL (3.8-4.9); Albumin/Globulin Ratio 1.11 Ratio (1.60-3.17); Alkaline Phosphatase 99 U/L (41-126); Anion Gap 12.90 mmol/L (4.00-12.00); BUN/Creat Ratio 42.17 Ratio (12.00-20.00); Blood Urea Nitrogen 25.3 mg/dL (9.0-27.0); Calcium 9.3 mg/dL (8.7-10.3); Carbon Dioxide 22.1 mmol/L (21.6-31.8); Chloride 97 mmol/L (96-109); Globulin 2.8 g/dL (1.6-3.3); Glucose 299 mg/dL (70-110); Potassium 5.2 mmol/L (3.5-5.5); Sodium 132 mmol/L (135-145); Total Protein 5.9 g/dL (6.2-8.2)
[2024-11-18 11:38] VITALS: BMI 17.5
[2024-11-18 12:36] LABS: Glucose,Whole Blood 423 mg/dL (70-110)
[2024-11-18] MEDS ORDERED: QUEtiapine 25 MG TAB PO PRN (14:36)
--- NOTE | 2024-11-18 14:46 | P.CN ---
Psychiatric Consult - . Consult date: 11/18/24 Consult:: 11/18/24 13:38 IDENTIFYING DATA: This patient is a 79-year-old male he is he has 2 kids, he lives alone in a house with a friend REASON FOR REFERRAL: Psychiatry was consulted for suicidal ideation with a plan HISTORY OF PRESENT ILLNESS: The patient presented to the hospital yesterday after an overdose. Patient apparently took an unknown amount of pain pills. Patient has a significant history for currently being in hospice for lung cancer with bone metastasis apparently this is diagnosed in July of this year. Patient has been refusing chemotherapy or radiation. Patient was seen at the bedside today by business writer, he was fairly polite attending to cooperate. He claims that "those the stupidest thing I have ever done" and claims that he was feeling very down and depressed about not being able to do anything. Claims that he regretted it after he did A. Claims that he must have taken around 2 bottles of pain medications over the course of a day or so. He stated that he would take a few tablets and then the rest and then take more. He claims that he initially had a plan to shoot himself however his friend talked him out of that. Claims that he does not want to disappoint his family or hurt them anymore. Claims that he is still having some poor energy weakness however was fairly outgoing and verbal and rambles at times. He was fairly pleasant during the interaction and answered all questions appropriately. Claims that his friend found him and he was altered mental status and she called family to bring him into the hospital. He states that he is feeling better now. Claims that his sleep has been fairly poor appetite has been fair. At this time patient denies any suicidal or homical ideations, intent or plan. Patient denies any auditory, visual hallucinations and denies any paranoia or delusions. He is endorsing mood instability. Patients admits to using no recreational drugs or cigarettes PAST PSYCHIATRIC HISTORY: Patient claims that he has no previous psychiatric history. Patient denies being on any psychiatric medications. Patient denies any previous psychiatric hospitalizations. Patient denies any psychiatric outpatient follow-up. Patient denies any history of suicide attempts in the past. Claims that his guns and ammunition were removed from the house by his son. Past Medical History: Coronary Artery Disease (CAD), Cancer, Chest Pain / Angina, Diabetes Mellitus, Hyperlipidemia, Hypertension, Myocardial Infarction (CT) Additional Past Medical History / Comment(s): stage 4 cancer Last Myocardial Infarction Date:: 1998 History of Any Multi-Drug Resistant Organisms: None Reported Past Surgical History: Coronary Bypass/CABG, Heart Catheterization, Heart Catheterization With Stent Date of Last Stent Placement:: 1998 Past Psychological History: No Psychological Hx Reported Smoking Status: Never smoker Past Alcohol Use History: Occasional Past Drug Use History: None Reported ALLERGIES: as per EMR. CHEMICAL DEPENDENCY HISTORY: as per HPI. FAMILY PSYCHIATRIC/SUBSTANCE USE HISTORY: Denies SOCIAL HISTORY: Patient was born and raised in [facility]. Claims that he did not finish high school. Claims that he joined the [employer] and was in [place]. Claims that when he returned back to the [facility] he worked multiple different jobs for different companies. They claimed that he was arrested in the past for incidences related to alcohol use including drinking and driving. He currently lives alone however with a friend occasionally, he is he has 2 kids MENTAL STATUS EXAM: General Appearance: Patient appears to be thin, wearing glasses, no shirt on, stated age is alert, pleasant, and cooperative. Patient appears to have fair hygiene and grooming wearing hospital gown with fair eye contact. Behavior: Patient is calmly lying in bed without any agitated behavior. Speech: Patient's speech is fluent and nonpressured. Fairly talkative rambling Mood/Affect: Patient reports their mood is "up and down sometimes", affect is congruent Suicidality/Homicidality: Patient denies having any suicidal or homicidal ideation intent or plan. Perceptions: Patient denies any visual hallucinations and denies any auditory hallucinations Though content/process: There is no evidence of any delusional thought content and thought process is linear and goal-directed. Rambling at times. Memory and concentration: AOX3, grossly intact for the purposes of this session. Can spell "WORLD" backwards Judgment and insight: Improving IMPRESSIONS: Mood disorder unspecified, likely secondary to steroids/medications Overdose suicide attempt on pain medications PLAN: -At this time patient DOES NOT meet criteria for inpatient psychiatric admission however due to the patient being on hospice, would ask that he be ideally transferred to a hospice house for his needs to be better taking care of given his prognosis. -Delirium precautions recommended with patient including - avoiding use of narc otics and MANAGER CARDIAC sedatives, limit anticholinergic medications when possible, frequent re-orientation, minimize use of restraints, open window shades during the day and close them at night -Would recommend the following medication changes/additions: Seroquel 25 mg twice daily as needed for mood stabilization/insomnia. Melatonin nightly for insomnia. -Continue 1:1 sitter for safety as patient is still unpredictable given the overdose and also a fall risk -Communicated plan to patient's nurse. pleae work with family to decide on appropriate d/c plan to hospice to ensure patient is not able have access to guns/weapons and will have close monitoring of his pills and not able to overdose again. -Psychiatry will sign off at this time -Please contact with any questions. 11/18/24 14:37
[2024-11-18] MEDS ORDERED: DEXTROSE 50% SYRINGE 50 ML IVP PRN ×2 (15:40)
--- NOTE | 2024-11-18 15:58 | P.HPIM ---
History of Present Illness H&P Date: 11/18/24 I assumed care of this patient at 2:46PM. Case was discussed with Dr. Warner who attempted to endorse the patient to PCP Dr. Dawn without success. It has been 24H without the patient being seen by a physician. 79 year old M with metastatic cancer to the bone, CAD, DM, HTN, HLD, Glaucoma presents to the ED after taking 30-60 [place] 5-325 tablets in a suicide attempt. He reports feeling depressed regarding his cancer diagnosis. He currently reports no active SI. He denies any excessive pain. He reports no complaints. In the ED he underwent extensive evaluation. BP 138/84, HR 101, T 97.4F, RR 18, 100% on RA. Labs significant for WBC 16.77, APTT 20.7, Na 133, Cl 96, BUN 35, glu 377, Lactic acid 5.5-2.5, alk phos 132. UA 4+ glucose. Salicylates, Acetaminophen, EtOH neg. UDS + opiate + oxycodone. EKG sinus rhythm with LBBB. CXR small infiltrate peripheral R mid lung with small R pleural effusion. Patient is admitted for further workup and management. General: no distress, appears at stated age Derm: warm, dry, sternal scar Head: atraumatic, normocephalic, symmetric Eyes: EOMI Mouth: no lip lesion, mucus membranes moist Cardiovascular: Good distal perfusion in all 4 extremities Lungs: Breathing comfortably, no accessory muscle use Ext: no gross muscle atrophy, no edema, no contractures Neuro: No focal neurologic deficits Psych: AO x 3 Based on my assessment of this patient, this patient meets a high complexity level of care. Overdose: Reported. Unreliable since Tylenol level is neg. Continue 1:1 sitter. Case management on board from [facility]. Psyc on board. SIRS: Unlikely infectious. Leukocytosis likely related to steroid use. Tachycardia now resolved. Monitor fever profile. DM with hyperglycemia: Start ISS + Accuchecks ACHS along with hypoglycemic precautions. Hyponatremia: Likely due to dehydration. Encourage hydration by mouth. Metastatic cancer to the bone: Pain management with Allendale 10 1 tab PO Q6H PRN. Motrin 400 mg PO Q6H PRN. Morphine 4 mg IV Q4H PRN. CAD: Ranolazine 1000 mg PO BID. Plavix 75 mg PO QD. Metoprolol 25 mg PO QD. HTN: Metoprolol as above. Lisinopril 5 mg PO MWF. HLD: Gemfibrozil 600 mg PO BID. Glaucoma: Latanoprost eye drops. Resolved: Lactic acidosis Unsure why patient is on Eliquis. Patient can not recall. Will hold for now. CODE STATUS: NO CODE DVT Prophylaxis: Lovenox GI Prophylaxis: Designated medical POA if patient is not able to make medical decisions for themselves: Daughter I have reviewed the following franchise business consultant notes: ED note. I have reviewed the results of the following tests: As above. I have ordered the following tests: I have discussed the care of this patient with the following independent historian: RN. I have independently interpreted the following test below: EKG I have discussed the management of this patient with the following physician: Dr. Warner. Past Medical History Past Medical History: Coronary Artery Disease (CAD), Cancer, Chest Pain / Angina , Diabetes Mellitus, Hyperlipidemia, Hypertension, Myocardial Infarction (SC) Additional Past Medical History / Comment(s): stage 4 cancer Last Myocardial Infarction Date:: 1998 History of Any Multi-Drug Resistant Organisms: None Reported Past Surgical History: Coronary Bypass/CABG, Heart Catheterization, Heart Catheterization With Stent Date of Last Stent Placement:: 1998 Past Psychological History: No Psychological Hx Reported Smoking Status: Never smoker Past Alcohol Use History: Occasional Past Drug Use History: None Reported Medications and Allergies Home Medications Medication Instructions Recorded Confirmed Type Colesevelam [Welchol] 1,875 mg PO BID 11/01/14 11/17/24 History Glimepiride [Amaryl] 4 mg PO BID 11/01/14 11/17/24 History Metoprolol Tartrate 25 mg PO DAILY 11/01/14 11/17/24 History Ranolazine [Ranexa] 1,000 mg PO BID 11/01/14 11/17/24 History gemfibroziL [Lopid] 600 mg PO BID 11/01/14 11/17/24 History Empagliflozin [Jardiance] 25 mg PO DAILY 11/20/22 11/17/24 History Latanoprost [Latanoprost 0.005%] 1 drop BOTH EYES HS 11/20/22 11/17/24 History Nitroglycerin Sl Tabs [Nitrostat] 0.4 mg SUBLINGUAL Q5M PRN 11/20/22 11/17/24 History bisacodyL [Dulcolax] 5 mg PO BID 11/20/22 11/17/24 History lisinopriL [Zestril] 5 mg PO MOWEFR 11/20/22 11/17/24 History metFORMIN HCL [Glucophage] 850 mg PO BID 11/20/22 11/17/24 History Apixaban [Eliquis] 5 mg PO BID 11/17/24 11/17/24 History Clopidogrel [Plavix] 75 mg PO DAILY 11/17/24 11/17/24 History HYDROcodone/APAP 10-325MG [All[place] 1 tab PO Q6HR PRN 11/17/24 11/17/24 History 10-325] Ibuprofen [Motrin Ib] 600 mg PO TID 11/17/24 11/17/24 History dexAMETHasone 4 mg PO BID 11/17/24 11/17/24 History Allergies Allergy/AdvReac Type Severity Reaction Status Date / Time amoxicillin Allergy Unknown Verified 11/17/24 13:31 ampicillin Allergy Unknown Verified 11/17/24 13:31 cortisone Allergy Unknown Verified 11/17/24 13:31 erythromycin base Allergy Unknown Verified 11/17/24 13:31 Penicillins Allergy Unknown Verified 11/17/24 13:31 prednisone Allergy Unknown Verified 11/17/24 13:31 Physical Exam Vitals: Vital Signs Temp Pulse Pulse Pulse Resp BP BP 11/18/24 13:20 98.0 F 85 18 11/18/24 10:54 78 18 11/18/24 07:53 98.3 F 78 18 11/18/24 01:13 98.4 F 87 20 148/64 11/17/24 22:40 97.9 F 65 18 142/71 11/17/24 22:22 90 18 133/70 11/17/24 19:00 86 18 142/86 11/17/24 18:00 80 18 133/66 11/17/24 17:00 80 18 140/70 11/17/24 16:00 84 18 140/81 BP Pulse Ox 11/18/24 13:20 175/75 98 11/18/24 10:54 11/18/24 07:53 156/62 98 11/18/24 01:13 96 11/17/24 22:40 95 11/17/24 22:22 96 11/17/24 19:00 98 11/17/24 18:00 98 11/17/24 17:00 99 11/17/24 16:00 97 Intake and Output 11/18/24 11/18/24 11/18/24 06:59 14:59 22:59 Intake Total 240 Output Total 100 Balance 140 Intake: Oral 240 Output: Urine 100 Other: Voiding Method Toilet Urinal # Voids 2 Weight 60.328 kg Results CBC & Chem 7: 11/18/24 04:56 11/18/24 04:56 Labs: Abnormal Lab Results - Last 24 Hours (Table) 11/17/24 11/17/24 11/18/24 Range/Units 15:49 22:01 04:56 RBC 3.95 L (4.40-5.60) X 10*6/uL Hgb 10.5 L (13.0-17.0) g/dL Hct 33.9 L (39.6-50.0) % MCH 26.6 L (27.0-32.0) pg MCHC 31.0 L (32.0-37.0) g/dL MPV 8.7 L (9.5-12.2) FL Immature Gran # 0.23 H (0.00-0.04) X 10*3/uL Neutrophils # 8.31 H (1.80-7.70) X 10*3/uL Lymphocytes # 0.30 L (0.90-5.00) X 10*3/uL Eosinophils # 0.02 L (0.04-0.35) X 10*3/uL Sodium (135-145) mmol/L Anion Gap (4.00-12.00) mmol/L BUN/Creatinine Ratio (12.00-20.00) Ratio Glucose (70-110) mg/dL POC Glucose (mg/dL) 253 H (70-110) mg/dL Plasma Lactic Acid Logan 2.5 H* (0.7-2.0) mmol/L Total Bilirubin (0.3-1.2) mg/dL Total Protein (6.2-8.2) g/dL Albumin (3.8-4.9) g/dL Albumin/Globulin Ratio (1.60-3.17) Ratio 11/18/24 11/18/24 11/18/24 Range/Units 04:56 07:09 12:35 RBC (4.40-5.60) X 10*6/uL Hgb (13.0-17.0) g/dL Hct (39.6-50.0) % MCH (27.0-32.0) pg MCHC (32.0-37.0) g/dL MPV (9.5-12.2) FL Immature Gran # (0.00-0.04) X 10*3/uL Neutrophils # (1.80-7.70) X 10*3/uL Lymphocytes # (0.90-5.00) X 10*3/uL Eosinophils # (0.04-0.35) X 10*3/uL Sodium 132 L (135-145) mmol/L Anion Gap 12.90 H (4.00-12.00) mmol/L BUN/Creatinine Ratio 42.17 H (12.00-20.00) Ratio Glucose 299 H (70-110) mg/dL POC Glucose (mg/dL) 271 H 423 H (70-110) mg/dL Plasma Lactic Acid Logan (0.7-2.0) mmol/L Total Bilirubin <0.2 L (0.3-1.2) mg/dL Total Protein 5.9 L (6.2-8.2) g/dL Albumin 3.1 L (3.8-4.9) g/dL Albumin/Globulin Ratio 1.11 L (1.60-3.17) Ratio
[2024-11-18 17:12] LABS: Glucose,Whole Blood 429 mg/dL (70-110)
[2024-11-18] MEDS: INSULIN LISPRO (HumaLOG) 100 UNIT/ML 10 mL VL SQ SCH (17:17)
[2024-11-18] MEDS ORDERED: NITROGLYCERIN SL TABS 0.4 MG TAB SUBLINGUAL PRN (18:46)
[2024-11-18] MEDS: MELATONIN 3 MG TABLET PO SCH (21:59)
[2024-11-18] MEDS: APIXABAN 5 MG TAB PO SCH (23:22)
[2024-11-18] MEDS: RANOLAZINE 500 MG TAB.ER.12H PO SCH (23:23)
[2024-11-19] MEDS ORDERED: ENOXAPARIN 40 MG/0.4 ML SYRINGE SQ SCH (09:00)
[2024-11-19] MEDS ORDERED: FENOFIBRATE 160 MG TAB PO SCH (09:00)
[2024-11-19] MEDS: INSULIN GLARGINE (LANTUS) 100 UNIT/ML SYR SQ SCH (20:56)
[2024-11-19 21:12] LABS: Glucose,Whole Blood 564 mg/dL (70-110)
[2024-11-19] MEDS: INSULIN GLARGINE (LANTUS) 100 UNIT/ML SYR SQ STA (21:47)
[2024-11-20 07:15] LABS: Glucose,Whole Blood 405 mg/dL (70-110)
[2024-11-20 12:13] LABS: Glucose,Whole Blood >600 mg/dL (70-110)
[2024-11-20 12:19] LABS: Glucose,Whole Blood 574 mg/dL (70-110)
[2024-11-20] MEDS: INSULIN LISPRO (HumaLOG) 100 UNIT/ML 10 mL VL SQ ONE (13:16)
--- NOTE | 2024-11-20 14:09 | P.PN ---
Progress Note - Text Progress Note Date: 11/20/24 Interval history: Patient was seen today for psychiatric follow-up as requested by her primary t brittany. Patient continues to be on a one-to-one sitter. He continues to await hospice placement however has been declined by several. He appeared to be fairly bright was eating his lunch watching television. Claims that he is feeling much better today, claims that he has not heard much about where he will be going. He appears to be fairly future oriented, claims that he wants to live for his daughter and son and knows that they are helping him as much as they can. He is trying to remain positive despite being on hospice and having his diagnosis. Claims that he has been sleeping fairly, eating well, denying any depression or anxiety at this time. Denies any suicidal or homicidal ideations intent or plan. Denies any auditory or visual hallucinations. MENTAL STATUS EXAM: General Appearance: Patient appears to be thin, wearing glasses, no shirt on, stated age is alert, pleasant, and cooperative. Patient appears to have fair hygiene and grooming wearing hospital gown with fair eye contact. Behavior: Patient is calmly sitting in the chair beside his bed without any agitated behavior. Pleasant cooperative Speech: Patient's speech is fluent and nonpressured. Mood/Affect: Patient reports their mood is "Good", affect is congruent Suicidality/Homicidality: Patient denies having any suicidal or homicidal ideation intent or plan. Perceptions: Patient denies any visual hallucinations and denies any auditory hallucinations Though content/process: There is no evidence of any delusional thought content and thought process is linear and goal-directed. Rambling at times. future oriented Memory and concentration: AOX3, grossly intact for the purposes of this session Judgment and insight: Improving IMPRESSIONS: Mood disorder unspecified, likely secondary to steroids/medications Overdose suicide attempt on pain medications PLAN: -At this time patient DOES NOT meet criteria for inpatient psychiatric admission however due to the patient being on hospice, would ask that he be ideally transferred to a hospice house for his needs to be better taking care of given his prognosis. -Delirium precautions recommended with patient including - avoiding use of narcotics and DIRECTOR OF LAND ACQUISITION sedatives, limit anticholinergic medications when possible, frequent re-orientation, minimize use of restraints, open window shades during the day and close them at night -Would recommend the following medication changes/additions: continue medications as perscribed. he does not want psychiatric meds at this time however is still struggling with insomnia there will add trazodone 50 mg qhs prn for insomnia. -Discontinue 1:1 sitter for safety as patient is not endorsing any suicidal thoughts, future oriented and contracted for safety -Communicated plan to patient's nurse and social security benefits interviewer. Continue to look for hospice placement as this would be a better environment suited for patient. -Psychiatry will sign off at this time -Please contact with any questions.
[2024-11-20] MEDS: INSULIN GLARGINE (LANTUS) 100 UNIT/ML SYR SQ SCH (14:14)
[2024-11-20] MEDS: INSULIN LISPRO (HumaLOG) 100 UNIT/ML 10 mL VL SQ SCH (17:40)
[2024-11-20 19:49] VITALS: RESP 16
[2024-11-20] MEDS ORDERED: ZOLPIDEM 5 MG TAB PO SCH (21:00)
[2024-11-20] MEDS ORDERED: INSULIN GLARGINE (LANTUS) 100 UNIT/ML SYR SQ SCH ×2 (21:00)
--- NOTE | 2024-11-20 21:20 | HP ---
HISTORY AND PHYSICAL ADMITTING SUMMARY CHIEF COMPLAINT: Drug overdose and suicide attempt. HISTORY OF PRESENT ILLNESS: This is another admission for this 79-year-old white male who recently was identified as having metastatic carcinoma starting in the back with metastases to multiple sites. He became depressed and took a bottle of analgesics. He became weak and lethargic and came to emergency room. REVIEW OF SYSTEMS: At the present time, he is stable, doing well. Past medical history, family history and personal and social histories reveal that he has a history of type 2 diabetes, coronary artery disease. PHYSICAL EXAMINATION: VITAL SIGNS: Normal. HEAD, EARS, EYES, NOSE, MOUTH AND THROAT: Normal. CHEST: Clear. CARDIAC: Normal. ABDOMEN: Soft, nontender. EXTREMITIES: Normal. IMPRESSION: 1. Major depression. 2. Drug overdose. 3. Suicide attempt. 4. Metastatic carcinoma, type unknown. PLAN: 1. Bedrest. 2. IV fluids. 3. Suicide precautions. MMODL / IJN: [id number] /
--- NOTE | 2024-11-20 21:49 | PN ---
PROGRESS NOTE CHIEF COMPLAINT: Depression and suicide attempt. HISTORY OF PRESENT ILLNESS: This gentleman is doing well. He currently denies being suicidal. We will ask Psychiatry to make a determination in order that we may be able to cancel his bedside sitter. He is doing well otherwise. Pain is under good control. PHYSICAL EXAMINATION: CHEST: Clear. CARDIAC: Normal. ABDOMEN: Soft, nontender. IMPRESSION: 1. Metastatic cancer. 2. Depression. 3. Drug overdose. PLAN: No change in program. His daughter is looking into moving him to hospice in the [facility]. MMODL / IJN: [id number] /
[2024-11-20] MEDS: HYDROcodone/APAP 10-325MG 1 EACH TAB PO PRN (23:09)
--- NOTE | 2024-11-21 03:05 | PN ---
PROGRESS NOTE DATE OF SERVICE: 11/18/2024 CHIEF COMPLAINT: Drug overdose and depression. HISTORY OF PRESENT ILLNESS: This gentleman is doing fairly well and has been embarrassed about having taken the pills when he was thinking about killing himself. He has been extremely depressed and finding out recently that he has metastatic untreatable terminal carcinoma. He feels better and that his daughter is making arrangements for him to go to a hospice unit near her and her brother. PHYSICAL EXAMINATION: He is very depressed and cries at times. However, he seems to be coming to account executive key accounts with the reality of what he is facing. Physical exam is unchanged. IMPRESSION: 1. Drug ingestion. 2. Major depression. 3. Metastatic terminal carcinoma. 4. Diabetes. PLAN: Keep the patient comfortable until arrangements were made for his transfer to the hospice unit in the [facility]. MMESTHELA / JARRETT: [id number] /
--- NOTE | 2024-11-21 03:11 | PN ---
PROGRESS NOTE DATE OF SERVICE: 11/19/2024 CHIEF COMPLAINT: Drug ingestion. HISTORY OF PRESENT ILLNESS: This gentleman is doing fairly well. He is little bit sleepy. He is not having a great deal of pain. PHYSICAL EXAMINATION: CHEST: Clear. CARDIAC: Normal. ABDOMEN: Soft, nontender. IMPRESSION: 1. Drug ingestion. 2. Depression. 3. Metastatic untreatable carcinoma. 4. Diabetes. 5. Rising blood sugars. PLAN: 1. Add insulin to his program. 2. Stop some of his other medications. 3. Await for hospice placement. MMODL / IJN: [id number] /
[2024-11-21 07:12] LABS: Glucose,Whole Blood 288 mg/dL (70-110)
[2024-11-21 12:10] LABS: Glucose,Whole Blood 230 mg/dL (70-110)
[2024-11-21 12:17] VITALS: BP 159/74; PULSE 73; TEMP 97.5
[2024-11-21] MEDS ORDERED: MORPHINE SULFATE IR 15 MG TABLET PO PRN (12:54)
--- NOTE | 2024-11-24 08:35 | DS ---
DISCHARGE SUMMARY CHIEF COMPLAINT: Drug ingestion. HISTORY OF PRESENT ILLNESS AND PHYSICAL EXAMINATION: Details of this man's history and physical can be found in the initial workup. COURSE IN THE HOSPITAL: After admission, he was placed on bedrest, started on intravenous fluids and bedside sitter. He had taken a large quantity of pain pills thinking about killing himself when faced with his demise. Metastatic untreatable carcinoma. After his admission, he was remorseful and indicated that he was not any longer suicidal. His family came in and made arrangements for him to be transferred to a hospice unit near them. While in the hospital, his blood sugars brandie significantly and insulin was instituted. His sugars are under better control. He will receive further management at the hospice unit in [place]. FINAL DIAGNOSES: 1. Drug ingestion. 2. Major depression. 3. Suicidal attempt. 4. Untreatable metastatic carcinoma. 5. History of coronary artery disease. 6. History of type 2 diabetes. 7. Dehydration. OPERATIONS: None. CONSULTATIONS: Psychiatry. MMODL / IJN: [id number] /
== END 2024-11-21 14:47 | disposition hospice, inpatient (51) | DRG 918 ==
LOC: EC 11:46 → 5NMEDONC 14:41
PROVIDERS: ADMIT Family Medicine; ATTEND Family Medicine
DX: T40.602A Poisoning by unspecified narcotics, intentional self-harm, initial encounter (principal); C79.51 Secondary malignant neoplasm of bone; E87.20 Acidosis, unspecified; E87.1 Hypo-osmolality and hyponatremia; Z51.5 Encounter for palliative care; Z66 Do not resuscitate; C34.90 Malignant neoplasm of unspecified part of unspecified bronchus or lung; D72.829 Elevated white blood cell count, unspecified; J90 Pleural effusion, not elsewhere classified; E11.65 Type 2 diabetes mellitus with hyperglycemia; F32.9 Major depressive disorder, single episode, unspecified; I10 Essential (primary) hypertension; F19.94 Other psychoactive substance use, unspecified with psychoactive substance-induced mood disorder; E86.0 Dehydration; E78.5 Hyperlipidemia, unspecified; Z79.84 Long term (current) use of oral hypoglycemic drugs; H40.9 Unspecified glaucoma; I25.10 Atherosclerotic heart disease of native coronary artery without angina pectoris; I25.2 Old myocardial infarction; I44.7 Left bundle-branch block, unspecified; T38.0X5A Adverse effect of glucocorticoids and synthetic analogues, initial encounter; Z95.1 Presence of aortocoronary bypass graft; Z95.5 Presence of coronary angioplasty implant and graft; Z79.899 Other long term (current) drug therapy; Z79.02 Long term (current) use of antithrombotics/antiplatelets; Z79.01 Long term (current) use of anticoagulants; Z60.2 Problems related to living alone; Z53.29 Procedure and treatment not carried out because of patient's decision for other reasons; Z65.3 Problems related to other legal circumstances; Z88.1 Allergy status to other antibiotic agents; Z88.0 Allergy status to penicillin
CPT/HCPCS: 36415; 71045; 80053; 80143; 80179; 80306; 80320; 81003; 83605; 85025; 85610; 85730; 93005; 94760; 96361; 96374; 99291